=== PATIENT | male | born 1940 | race Caucasian/White ===

== ENCOUNTER → 2016-05-04 | Outpatient (CLI) | payer OTHER ==
[~2016-05-04] MED LIST: CRD4 PO; IPRA1AER2 INH; PRVC/40 PO; SYMIN160 INH; THEO1TAB PO
[2016-05-04 16:48] LABS: BASO % 0.1 %; BASO ABS # 0.01 K/uL (0-0.2); COMPLETE YES; EOS % 0.2 %; HEMATOCRIT 45.5 % (42-52); IG% 0.3 %; LYMPH % 14.2 %; LYMPH ABS # 1.74 K/uL (1.2-3.4); MEAN CELL VOLUME 90.6 fL (80-100); MEAN CORPUSCULAR HEMOGLOBIN 31.3 pg (25-34); MEAN CORPUSCULAR HGB CONC 34.5 g/dl (32-36); MEAN PLATELET VOLUME 9.8 fL (7.4-10.4); MONO % 3.5 %; NEUT % 81.7 %; PLATELET COUNT 235 K/uL (130-400); RED BLOOD COUNT 5.02 M/uL (4.7-6.1); WHITE BLOOD COUNT 12.24 K/uL (4.8-10.8)
[2016-05-04 16:55] LABS: URINE APPEARANCE CLEAR (CLEAR); URINE BILIRUBIN NEG (NEG); URINE COLOR YELLOW; URINE NITRITE NEG (NEG); URINE PH 5.5 (4.5-7.5); URINE SPECIFIC GRAVITY 1.017 (1.000-1.030); UROBILINOGEN NEG (NEG); ZZUR CULT IF INDIC CLEAN CATCH NO
[2016-05-04 16:58] LABS: ALT/SGPT 22 U/L (12-78); BLOOD UREA NITROGEN 17 mg/dl (7-18); BUN/CREATININE RATIO 18.1 (10-20); CALCIUM 9.4 mg/dl (8.5-10.1); CARBON DIOXIDE 26 mmol/L (21-32); CHLORIDE 102 mmol/L (98-107); CHOLESTEROL 266 mg/dl (0-200); CREATININE 0.95 mg/dl (0.60-1.40); GLUCOSE 105 mg/dl (70-99); POTASSIUM 4.2 mmol/L (3.5-5.1); SODIUM 139 mmol/L (136-145)
[2016-05-04 17:00] LABS: MANUAL MICROSCOPIC REQUIRED? NO; REVIEW REQ? NO
[2016-05-04 17:08] LABS: ALB/GLOB RATIO 1.2 (0.9-2); ALKALINE PHOSPHATASE 72 U/L (45-117); AST/SGOT 16 U/L (15-37); CHOLESTEROL/HDL RATIO 3.6; HDL CHOLESTEROL 73 mg/dl; LDL CHOLESTEROL CALCULATED 182 mg/dl; THYROID STIMULATING HORMONE 0.319 uIu/ml (0.300-4.500); TRIGLYCERIDES 55 mg/dl (0-150); VERY LOW DENSITY LIPOPROT CALC 11 mg/dl
--- NOTE | 2016-05-10 11:30 | CODING QUERY MEDICAL NECESSITY ---
SUPPORTING DIAGNOSIS NEEDED A supporting diagnosis is required for the test/procedure performed on this patient in order for us to be reimbursed by the patient's insurance. Please provide a supporting diagnosis for the following test/procedure listed below next to the test name along with your signature. *If there is no additional diagnosis for this patient that would support the following test/procedure please document that below next to the test/procedure. Test(s)/Procedure(s) that require a supporting diagnosis: DOS 05/04 * Vitamin D DIAGNOSIS: Provider Signature: Date: Thank you Gaby Li Health Information Management Once completed, please kindly fax back to [phone] For questions please call [phone]
== END | disposition home or self-care (01) ==
LOC: C.LABBFT 12:47
PROVIDERS: ATTEND Internal Medicine
DX: R06.02 Shortness of breath (principal); E78.00 Pure hypercholesterolemia, unspecified; E55.9 Vitamin D deficiency, unspecified

== ENCOUNTER → 2016-05-05 | Outpatient (CLI) | payer OTHER ==
--- NOTE | 2016-05-05 11:27 | DIAGNOSTIC IMAGING REPORT ---
CHEST 2 VIEWS ROUTINE CLINICAL HISTORY: Shortness of breath. COMPARISON STUDY: Chest CT November 01, 2014 FINDINGS: Lung hyperexpansion is again noted. Emphysema is present. No consolidation is identified. Biapical opacities are unchanged and likely reflect scarring. Cardiac size is normal. Mediastinal contours are normal. There is no evidence of pulmonary edema. Appearance of the chest is unchanged. IMPRESSION: 1. No acute cardiopulmonary findings. No change in appearance of the chest. 2. Emphysema and biapical scarring. Electronically signed by: Ap Negrete M.D. 05/05/2016 11:25 AM
== END | disposition home or self-care (01) ==
LOC: C.RAD 10:26
PROVIDERS: ATTEND Internal Medicine
DX: R06.02 Shortness of breath (principal); J43.9 Emphysema, unspecified; J98.4 Other disorders of lung

== ENCOUNTER → 2016-06-21 | Outpatient (CLI) | payer OTHER | END | disposition home or self-care (01) | LOC: C.LAB1850 11:29 | PROVIDERS: ATTEND Internal Medicine Pulmonary Disease | DX: R07.89 Other chest pain (principal) ==

== ENCOUNTER → 2016-06-22 | Outpatient (CLI) | payer OTHER ==
[~2016-06-22] MED LIST changes: +OPTIRAY 320 IV PRN
--- NOTE | 2016-06-22 11:27 | DIAGNOSTIC IMAGING REPORT ---
CHEST CTA for PULMONARY ARTERIES CT DOSE: 241.94 mGy.cm HISTORY: Chest pain dyspnea TECHNIQUE: Multiaxial CT images of the chest were performed following the intravenous administration of contrast to evaluate the pulmonary arteries. Maximal intensity projection images were also obtained. COMPARISON STUDY: 11/11/2014 FINDINGS: There is a normal caliber thoracic aorta with no evidence for dissection. There is no evidence for pulmonary embolus. No pleural effusions. No pneumothorax. The liver and spleen are unremarkable. No mediastinal or hilar lymphadenopathy. The central airways are patent. The lungs are clear. Emphysematous change. Chronic interstitial prominence. Fibrotic changes of the pulmonary apices stable from the prior exam. IMPRESSION: 1. No evidence for pulmonary embolus. 2. Emphysematous changes similar as compared to the prior study. 3. Nonspecific peribronchial and interstitial prominence also unchanged Electronically signed by: Jc Yanez M.D. 06/22/2016 11:25 AM Dictated Date/Time: 06/22/2016 11:22 AM
== END | disposition home or self-care (01) ==
LOC: C.CTS 10:45
PROVIDERS: ATTEND Internal Medicine Pulmonary Disease
DX: R07.9 Chest pain, unspecified (principal)

== ENCOUNTER → 2016-10-07 | Outpatient (CLI) | payer OTHER ==
[~2016-10-07] MED LIST changes: -OPTIRAY 320 IV PRN
[2016-10-07 12:16] LABS: BASO ABS # 0.13 K/uL (0-0.2); COMPLETE YES; EOS % 6.6 %; HEMATOCRIT 45.7 % (42-52); IG% 0.2 %; LYMPH % 42.5 %; LYMPH ABS # 2.77 K/uL (1.2-3.4); MEAN CELL VOLUME 92.9 fL (80-100); MEAN CORPUSCULAR HEMOGLOBIN 29.9 pg (25-34); MEAN CORPUSCULAR HGB CONC 32.2 g/dl (32-36); MEAN PLATELET VOLUME 9.7 fL (7.4-10.4); MONO % 8.9 %; NEUT % 39.8 %; PLATELET COUNT 220 K/uL (130-400); RED BLOOD COUNT 4.92 M/uL (4.7-6.1); WHITE BLOOD COUNT 6.52 K/uL (4.8-10.8)
[2016-10-07 13:05] LABS: CHOLESTEROL/HDL RATIO 3.7
== END | disposition home or self-care (01) ==
LOC: C.LABBFT 09:26
PROVIDERS: ATTEND Internal Medicine
DX: E78.00 Pure hypercholesterolemia, unspecified (principal); E55.9 Vitamin D deficiency, unspecified

== ENCOUNTER → 2017-04-18 | Outpatient (CLI) | payer OTHER ==
[2017-04-18 18:20] LABS: ALT/SGPT 23 U/L (12-78); BLOOD UREA NITROGEN 17 mg/dl (7-18); BUN/CREATININE RATIO 14.6 (10-20); CALCIUM 8.8 mg/dl (8.5-10.1); CARBON DIOXIDE 28 mmol/L (21-32); CHLORIDE 102 mmol/L (98-107); CREATININE 1.17 mg/dl (0.60-1.40); GLUCOSE 86 mg/dl (70-99); POTASSIUM 4.1 mmol/L (3.5-5.1); SODIUM 134 mmol/L (136-145)
[2017-04-18 18:24] LABS: ALB/GLOB RATIO 1.1 (0.9-2); ALKALINE PHOSPHATASE 77 U/L (45-117); AST/SGOT 17 U/L (15-37); CHOLESTEROL 224 mg/dl (0-200); CHOLESTEROL/HDL RATIO 3.3; HDL CHOLESTEROL 68 mg/dl; LDL CHOLESTEROL CALCULATED 142 mg/dl; TRIGLYCERIDES 72 mg/dl (0-150); VERY LOW DENSITY LIPOPROT CALC 14 mg/dl
== END | disposition home or self-care (01) ==
LOC: C.LABBFT 13:58
PROVIDERS: ATTEND Internal Medicine
DX: J44.9 Chronic obstructive pulmonary disease, unspecified (principal); E78.00 Pure hypercholesterolemia, unspecified

== ENCOUNTER 2020-04-24 12:57 | Inpatient (IN) ==
[2020-04-24] MEDS ORDERED: DEXAMETHASONE SOD INJ 10 MG/ML VIAL IV ONE (13:13)
[2020-04-24 13:23] LABS: Basophils # (auto) 0.02 K/uL (0-0.2); Basophils % (auto) 0.2 %; Hematocrit (blood only) 44.3 % (42-52); Hemoglobin 15.2 g/dL (14.0-18.0); Immature Granulocytes # (auto) 0.03 K/uL (0.00-0.02); Immature Granulocytes % (auto) 0.3 %; Lymphocytes # (auto) 1.05 K/uL (1.2-3.4); Lymphocytes % (auto) 9.8 %; Mean Corpuscular Hemoglobin 31.2 pg (25-34); Mean Corpuscular Hgb Conc 34.3 g/dL (32-36); Mean Platelet Volume 9.4 fL (7.4-10.4); Monocytes # (auto) 0.31 K/uL (0.11-0.59); Monocytes % (auto) 2.9 %; Neutrophils # (auto) 9.31 K/uL (1.4-6.5); Neutrophils % (auto) 86.8 %; Platelet Count 221 K/uL (130-400); RDW Coefficient of Variation 13.5 % (11.5-14.5); RDW Standard Deviation 44.5 fL (36.4-46.3); Red Blood Count 4.87 M/uL (4.7-6.1); White Blood Count 10.72 K/uL (4.8-10.8)
--- NOTE | 2020-04-24 13:34 | Emergency Department Note ---
Impression & Plan COPD (chronic obstructive pulmonary disease), Hypoxia, COVID-19 virus infection ED Provider Note NAME: MARYAM DE LOS SANTOS AGE: 80 SEX: M : 1940 ARRIVES VIA: Walk-In INFORMANT: Patient, ED PROVIDER(S): Octavio Deleon DO CHIEF COMPLAINT: Shortness of breath HPI: The patient is an 80-year-old male has a history of asbestos exposure as well as COPD who presented to the emergency department for an evaluation of difficulty breathing. The patient has been noticing difficulty breathing cough and wheezing over the course of the last 2 weeks. His significant other was recently diagnosed with COVID-19 infection. The patient states that he has had no fever but does complain of dry cough. He describes no lower extremity swelling. He denies having any chest pain. He states his symptoms have been very moderate recently and started to become much worse than prior to arrival. He presented to the emergency department at the request of his family member who noted he was having very significant difficulty breathing. The patient has not been seen by his primary care physician. He is currently not on any antibiotics. ROS: See above HPI for pertinent positives & negatives. A total of 10 systems reviewed and were otherwise negative. PAST MEDICAL HISTORY: See Below PAST SURGICAL HISTORY: See Below FAMILY HISTORY: See Below SOCIAL HISTORY: See Below HOME MEDICATIONS: See Below ALLERGIES: See Below VITALS: See Below PHYSICAL EXAMINATION: GENERAL: Patient is awake alert in no acute distress patient is resting comfortably and showing no signs of anxiety EYES: The conjunctivae are clear. The pupils are round and reactive. EARS, NOSE, MOUTH AND THROAT: The nose is without any evidence of any deformity. NECK: The neck is nontender and supple. RESPIRATORY: Diminished breath sounds are noted throughout. Scattered expiratory wheezing was noted. Significant conversational dyspnea was appr eciated. CARDIOVASCULAR: Tachycardic rate with regular rhythm was noted. There was no definite murmur. GASTROINTESTINAL: The abdomen is soft. Abdomen is nontender. MUSCULOSKELETAL/EXTREMITIES: There is no evidence of gross deformity full range of motion is noted in the hips and shoulders. SKIN: There is no obvious evidence of any rash. No calf tenderness was elicited. NEUROLOGIC: Patient is awake alert and oriented x3. MEDICAL DECISION MAKING: The patient is an 80-year-old male who presented to the emergency department for an evaluation of difficulty breathing. The patient has a history of COPD. The patient significant other was recently diagnosed and admitted for COVID-19 infection which was very severe. The patient himself started having worsening symptoms over the course of the last few days. He had symptoms over the last few weeks but continues to worsen. The patient was treated with IV Decadron in the emergency department. I discussed the patient's laboratory and radiographic studies with him. He was found to have an elevated D-dimer. His lung sounds were relatively abnormal but his chest x-ray showed no significant disease. For this reason CT the chest was also obtained. I discussed the patient's condition with the on-call [facility]. They have agreed to evaluate the patient in the emergency department for further management and disposition. The patient was reevaluated multiple times. Triage Nursing notes reviewed. Prior medical records reviewed Vital Signs: reviewed and remarkable for hypoxia Differential diagnosis: Reactive airway disease, pneumonia, pneumothorax, COPD, CHF, infections, cardiac ischemia, pulmonary embolism, musculoskeletal, gastrointestinal, as well as other pathologies. ER treatment provided: See below Diagnostics interpreted by me: ECG: EKG was obtained in the emergency department. My interpretation is normal sinus rhythm at 93 bpm. There was no ectopy. Right bundle branch block pattern was noted. No PVCs were noted. This was compared to a tracing from May 222019. No significant changes were noted. Cardiac Monitoring: An order was placed for continuous cardiac monitoring. The monitor shows a rate of 85 bpm with sinus rhythm. Laboratory studies: As stated above and show below. Imaging studies: See below Consultation(s): I discussed this case with Dr. Perez who is on-call for the [facility] group. He is agreed to evaluate the patient in the emergency department for further management and disposition. Past Med/Surg History Medical History Asbestos exposure BPH (benign prostatic hyperplasia) COPD (chronic obstructive pulmonary disease) Elevated PSA Hyperlipidemia PIN (prostatic intraepithelial neoplasia) Surgical History History of hernia repair No pertinent past surgical history Family History Other No pertinent family history in first degree relatives Social History Smoking Status: Former smoker Number of Years Since Quit: 35; Second Hand Exposure: No; Hx Alcohol Use: No Hx Substance Use: No Preferred Language: Citizen Of [place] Communication Ability: Effective Visual Impairment: No Limitations Hearing Ability: Hard of Hearing Beliefs That Will Affect Care: None marital status: Current Living Situation: Spouse current occupational status: retired How many Children do You have: 6 Feels Safe at Home: Yes caffeine: Yes during the past year weight has: remained stable Dental Care, Regularly: No Physical Activity Frequency: Does not Exercise Seatbelt Use: sometimes Sunscreen Use: No Allergies Allergies Allergy/AdvReac Type Severity Reaction Status Date / Time rosuvastatin [From Crestor] Allergy Verified 04/24/20 14:31 Home Meds Home Medications Medication Instructions Recorded Confirmed budesonide 2 ml INH BID PRN 05/22/19 04/24/20 Previous Rx's Medication Instructions Recorded prednisone 5 mg tablet 5 mg PO DAILY #90 tab 05/31/19 doxazosin 4 mg tablet 4 mg PO QPM #90 tab 08/13/19 pravastatin 20 mg tablet 20 mg PO DAILY #90 tab 11/30/19 ipratropium 20 mcg-albuterol 100 1 puffs INH Q6H PRN #12 gm 12/03/19 mcg/actuation mist for inhalation Results & Data (ED) Vital Signs Vital Signs - 24 hr 04/24/20 13:00 04/24/20 13:03 04/24/20 13:10 Temperature 36.8 C Temperature Source Oral Pulse Rate 93 H 93 H 92 H Pulse Rate [Left Finger] Pulse Rate from SpO2 Sensor 93 H 93 H 93 H Respiratory Rate 25 H 28 H 22 Respiratory Effort / Characteristics Short of Breath Respiratory Pattern Tachypnea Blood Pressure 143/89 H Blood Pressure [Left Arm] Blood Pressure Mean 120 Blood Pressure Mean [Left Arm] Blood Pressure Position Lying Pulse Oximetry 95 97 97 Oxygen Delivery Method Room Air Oxygen Flow Rate Sepsis Recent Fever Within 48 Hours No Sepsis New/Unexplained Change in Mental Status No Sepsis Action Taken by Nursing No Action Required 04/24/20 13:20 04/24/20 13:21 04/24/20 13:24 Temperature Temperature Source Pulse Rate 99 H 102 H 93 H Pulse Rate [Left Finger] Pulse Rate from SpO2 Sensor 99 H 96 H Respiratory Rate 19 23 18 Respiratory Effort / Characteristics Short of Breath Respiratory Pattern Blood Pressure 122/76 Blood Pressure [Left Arm] Blood Pressure Mean 90 Blood Pressure Mean [Left Arm] Blood Pressure Position Pulse Oximetry 96 95 94 Oxygen Delivery Method Nasal Cannula Oxygen Flow Rate 4 Sepsis Recent Fever Within 48 Hours Sepsis New/Unexplained Change in Mental Status Sepsis Action Taken by Nursing 04/24/20 13:30 04/24/20 13:40 04/24/20 13:50 Temperature Temperature Source Pulse Rate 94 H 94 H 91 H Pulse Rate [Left Finger] Pulse Rate from SpO2 Sensor 95 H 96 H 93 H Respiratory Rate 20 32 H 23 Respiratory Effort / Characteristics Respiratory Pattern Blood Pressure 118/70 Blood Pressure [Left Arm] Blood Pressure Mean 82 Blood Pressure Mean [Left Arm] Blood Pressure Position Pulse Oximetry 93 95 91 Oxygen Delivery Method Oxygen Flow Rate Sepsis Recent Fever Within 48 Hours Sepsis New/Unexplained Change in Mental Status Sepsis Action Taken by Nursing 04/24/20 13:54 04/24/20 13:55 04/24/20 14:00 Temperature Temperature Source Pulse Rate 95 H Pulse Rate [Left Finger] Pulse Rate from SpO2 Sensor 96 H Respiratory Rate 20 16 Respiratory Effort / Characteristics Spontaneous Short of Breath SOB on Exertion Respiratory Pattern Blood Pressure 119/69 Blood Pressure [Left Arm] Blood Pressure Mean 82 Blood Pressure Mean [Left Arm] Blood Pressure Position Pulse Oximetry 95 93 Oxygen Delivery Method Nasal Cannula Nasal Cannula Oxygen Flow Rate 4 4 Sepsis Recent Fever Within 48 Hours Sepsis New/Unexplained Change in Mental Status Sepsis Action Taken by Nursing 04/24/20 14:10 04/24/20 14:20 04/24/20 14:30 Temperature Temperature Source Pulse Rate 99 H 96 H 98 H Pulse Rate [Left Finger] Pulse Rate from SpO2 Sensor 98 H 101 H 99 H Respiratory Rate 34 H 24 13 Respiratory Effort / Characteristics Respiratory Pattern Blood Pressure 113/69 Blood Pressure [Left Arm] Blood Pressure Mean 75 Blood Pressure Mean [Left Arm] Blood Pressure Position Pulse Oximetry 94 92 93 Oxygen Delivery Method Oxygen Flow Rate Sepsis Recent Fever Within 48 Hours Sepsis New/Unexplained Change in Mental Status Sepsis Action Taken by Nursing 04/24/20 14:40 04/24/20 15:00 04/24/20 15:21 Temperature Temperature Source Pulse Rate 91 H 96 H 84 Pulse Rate [Left Finger] Pulse Rate from SpO2 Sensor 96 H 96 H 84 Respiratory Rate 23 35 H 27 H Respiratory Effort / Characteristics Respiratory Pattern Blood Pressure 117/74 119/69 Blood Pressure [Left Arm] Blood Pressure Mean 79 78 Blood Pressure Mean [Left Arm] Blood Pressure Position Pulse Oximetry 93 95 94 Oxygen Delivery Method Oxygen Flow Rate Sepsis Recent Fever Within 48 Hours Sepsis New/Unexplained Change in Mental Status Sepsis Action Taken by Nursing 04/24/20 15:30 04/24/20 15:47 04/24/20 16:00 Temperature Temperature Source Pulse Rate 83 78 Pulse Rate [Left Finger] 77 Pulse Rate from SpO2 Sensor 84 79 Respiratory Rate 17 28 H 24 Respiratory Effort / Characteristics Respiratory Pattern Blood Pressure 120/71 105/64 Blood Pressure [Left Arm] 120/71 Blood Pressure Mean 76 69 Blood Pressure Mean [Left Arm] 87 Blood Pressure Position Pulse Oximetry 95 95 95 Oxygen Delivery Method Nasal Cannula Oxygen Flow Rate 3 Sepsis Recent Fever Within 48 Hours Sepsis New/Unexplained Change in Mental Status Sepsis Action Taken by Nursing 04/24/20 16:30 04/24/20 16:38 04/24/20 17:00 Temperature Temperature Source Pulse Rate 87 85 80 Pulse Rate [Left Finger] Pulse Rate from SpO2 Sensor 86 86 80 Respiratory Rate 23 24 17 Respiratory Effort / Characteristics Respiratory Pattern Blood Pressure 117/69 104/65 Blood Pressure [Left Arm] Blood Pressure Mean 78 73 Blood Pressure Mean [Left Arm] Blood Pressure Position Pulse Oximetry 96 94 94 Oxygen Delivery Method Oxygen Flow Rate Sepsis Recent Fever Within 48 Hours Sepsis New/Unexplained Change in Mental Status Sepsis Action Taken by [facility] Medications Current Medication List: was personally reviewed by me Laboratory Data Attestation: I reviewed the patient's lab results. Result diagrams: 04/24/20 13:08 04/24/20 13:08 Lab Results 04/24/20 04/24/20 04/24/20 Range/Units 13:08 13:08 13:08 WBC (4.8-10.8) K/uL RBC (4.7-6.1) M/uL Hgb (14.0-18.0) g/dL Hct (42-52) % MCV (80-100) fL MCH (25-34) pg MCHC (32-36) g/dL RDW Std Deviation (36.4-46.3) fL RDW Coeff of Pradeep (11.5-14.5) % Plt Count (130-400) K/uL MPV (7.4-10.4) fL Immature Gran % (Auto) % Neut % (Auto) % Lymph % (Auto) % [place] % (Auto) % Eos % (Auto) % Baso % (Auto) % Neut # (Auto) (1.4-6.5) K/uL Lymph # (Auto) (1.2-3.4) K/uL [place] # (Auto) (0.11-0.59) K/uL Eos # (Auto) (0-0.5) K/uL Baso # (Auto) (0-0.2) K/uL Immature Gran # (Auto) (0.00-0.02) K/uL PT 10.8 (9.0-12.0) Seconds INR 1.0 (0.9-1.1) APTT 31.0 (21.0-31.0) Seconds PTT Ratio 1.1 D-Dimer 1470 H* (0-500) ug/L FEU VBG pH (7.36-7.41) VBG pCO2 (38-50) mmHg VBG pO2 mmHg VBG HCO3 mmol/L VBG O2 Saturation % VBG Base Excess mEq/L Barometric Pressure mm/Hg Sodium 131 L (136-145) mmol/L Potassium 3.9 (3.5-5.1) mmol/L Chloride 97 L (98-107) mmol/L Carbon Dioxide 25 (21-32) mmol/L Anion Gap 10.0 (3-11) BUN 25 H (7-18) mg/dl Creatinine 1.08 (0.6-1.4) mg/dl Est Cr Clr Drug Dosing 44.0 ml/min Est GFR ( Amer) 74.2 Est GFR (Non-Af Amer) 64.0 BUN/Creatinine Ratio 23.1 H (10-20) Glucose 112 H (70-99) mg/dl Lactate (0.4-2.0) mmol/L Calcium 8.4 L (8.5-10.1) mg/dl Magnesium 2.1 (1.8-2.4) mg/dl Total Bilirubin 0.7 (0.2-1) mg/dl AST 35 (15-37) U/L ALT 22 (12-78) U/L Alkaline Phosphatase 60 (45-117) U/L Troponin I < 0.015 (0-0.045) ng/ml Total Protein 7.2 (6.4-8.2) gm/dl Albumin 3.0 L (3.4-5.0) gm/dl Globulin 4.2 H (2.5-4.0) gm/dl Albumin/Globulin Ratio 0.7 L (0.9-2) Procalcitonin 0.05 (0-0.5) ng/ml COVID-19 Eval Order SARS-CoV-2 (PCR) (Negative) Influenza Type A (PCR) (Neg) Influenza Type B (PCR) (Neg) RSV (RT-PCR) (Neg) 04/24/20 04/24/20 04/24/20 Range/Units 13:08 13:35 13:35 WBC 10.72 (4.8-10.8) K/uL RBC 4.87 (4.7-6.1) M/uL Hgb 15.2 (14.0-18.0) g/dL Hct 44.3 (42-52) % MCV 91.0 (80-100) fL MCH 31.2 (25-34) pg MCHC 34.3 (32-36) g/dL RDW Std Deviation 44.5 (36.4-46.3) fL RDW Coeff of Pradeep 13.5 (11.5-14.5) % Plt Count 221 (130-400) K/uL MPV 9.4 (7.4-10.4) fL Immature Gran % (Auto) 0.3 % Neut % (Auto) 86.8 % Lymph % (Auto) 9.8 % [place] % (Auto) 2.9 % Eos % (Auto) 0.0 % Baso % (Auto) 0.2 % Neut # (Auto) 9.31 H (1.4-6.5) K/uL Lymph # (Auto) 1.05 L (1.2-3.4) K/uL [place] # (Auto) 0.31 (0.11-0.59) K/uL Eos # (Auto) 0.00 (0-0.5) K/uL Baso # (Auto) 0.02 (0-0.2) K/uL Immature Gran # (Auto) 0.03 H (0.00-0.02) K/uL PT (9.0-12.0) Seconds INR (0.9-1.1) APTT (21.0-31.0) Seconds PTT Ratio D-Dimer (0-500) ug/L FEU VBG pH (7.36-7.41) VBG pCO2 (38-50) mmHg VBG pO2 mmHg VBG HCO3 mmol/L VBG O2 Saturation % VBG Base Excess mEq/L Barometric Pressure mm/Hg Sodium (136-145) mmol/L Potassium (3.5-5.1) mmol/L Chloride (98-107) mmol/L Carbon Dioxide (21-32) mmol/L Anion Gap (3-11) BUN (7-18) mg/dl Creatinine (0.6-1.4) mg/dl Est Cr Clr Drug Dosing ml/min Est GFR ( Amer) Est GFR (Non-Af Amer) BUN/Creatinine Ratio (10-20) Glucose (70-99) mg/dl Lactate (0.4-2.0) mmol/L Calcium (8.5-10.1) mg/dl Magnesium (1.8-2.4) mg/dl Total Bilirubin (0.2-1) mg/dl AST (15-37) U/L ALT (12-78) U/L Alkaline Phosphatase (45-117) U/L Troponin I (0-0.045) ng/ml Total Protein (6.4-8.2) gm/dl Albumin (3.4-5.0) gm/dl Globulin (2.5-4.0) gm/dl Albumin/Globulin Ratio (0.9-2) Procalcitonin (0-0.5) ng/ml COVID-19 Eval Order [facility]Rsv at [facility] SARS-CoV-2 (PCR) POSITIVE A* (Negative) Influenza Type A (PCR) Negative (Neg) Influenza Type B (PCR) Negative (Neg) RSV (RT-PCR) Negative (Neg) 04/24/20 04/24/20 Range/Units 14:23 14:23 WBC (4.8-10.8) K/uL RBC (4.7-6.1) M/uL Hgb (14.0-18.0) g/dL Hct (42-52) % MCV (80-100) fL MCH (25-34) pg MCHC (32-36) g/dL RDW Std Deviation (36.4-46.3) fL RDW Coeff of Pradeep (11.5-14.5) % Plt Count (130-400) K/uL MPV (7.4-10.4) fL Immature Gran % (Auto) % Neut % (Auto) % Lymph % (Auto) % [place] % (Auto) % Eos % (Auto) % Baso % (Auto) % Neut # (Auto) (1.4-6.5) K/uL Lymph # (Auto) (1.2-3.4) K/uL [place] # (Auto) (0.11-0.59) K/uL Eos # (Auto) (0-0.5) K/uL Baso # (Auto) (0-0.2) K/uL Immature Gran # (Auto) (0.00-0.02) K/uL PT (9.0-12.0) Seconds INR (0.9-1.1) APTT (21.0-31.0) Seconds PTT Ratio D-Dimer (0-500) ug/L FEU VBG pH 7.46 H (7.36-7.41) VBG pCO2 37 L (38-50) mmHg VBG pO2 25 mmHg VBG HCO3 26 mmol/L VBG O2 Saturation < 60.0 % VBG Base Excess 1.9 mEq/L Barometric Pressure 728.2 mm/Hg Sodium (136-145) mmol/L Potassium (3.5-5.1) mmol/L Chloride (98-107) mmol/L Carbon Dioxide (21-32) mmol/L Anion Gap (3-11) BUN (7-18) mg/dl Creatinine (0.6-1.4) mg/dl Est Cr Clr Drug Dosing ml/min Est GFR ( Amer) Est GFR (Non-Af Amer) BUN/Creatinine Ratio (10-20) Glucose (70-99) mg/dl Lactate 1.2 (0.4-2.0) mmol/L Calcium (8.5-10.1) mg/dl Magnesium (1.8-2.4) mg/dl Total Bilirubin (0.2-1) mg/dl AST (15-37) U/L ALT (12-78) U/L Alkaline Phosphatase (45-117) U/L Troponin I (0-0.045) ng/ml Total Protein (6.4-8.2) gm/dl Albumin (3.4-5.0) gm/dl Globulin (2.5-4.0) gm/dl Albumin/Globulin Ratio (0.9-2) Procalcitonin (0-0.5) ng/ml COVID-19 Eval Order SARS-CoV-2 (PCR) (Negative) Influenza Type A (PCR) (Neg) Influenza Type B (PCR) (Neg) RSV (RT-PCR) (Neg) Administered Medications Discontinued Medications Dexamethasone (Dexamethasone Sod Inj 10 Mg/Ml Vial) 10 mg IV NOW ONE Stop: 04/24/20 13:14 Last Admin: 04/24/20 13:17 Dose: 10 mg Documented by: [id number] Ioversol (Optiray 320 125ml) 118 ml IV ONCE ONE Stop: 04/24/20 15:10 Last Admin: 04/24/20 15:10 Dose: 118 ml Documented by: [id number] Imaging Data Radiologist's Impression: Patient: MARYAM DE LOS SANTOS Date: 04/24/20#: [id number]: [address] [facility]:[id number]: Date: 1940[facility] Zip: [place], [place] [address]Xxa: 80Location: EDSex: MRoom/Bed:Att Phy:Diagnosis: sobPri Phy: Stan Moseley MDService Date: 04/24/20Fam Phy:Interpreting Phy: Ronaldo GonzalezAdmit Phy: Ordering Phy: Octavio Deleon DO cc: ~ CT angio chest PE protocol CT DOSE: 373.04 mGycm HISTORY: 80 years-old Male with PE. Acute shortness of breath TECHNIQUE: Multiple CTA images of the chest were obtained after the intravenous administration of 118 ml Optiray 320. Coronal and sagittal MIPS were obtained from the axial data set and were submitted for review. All measurements were obtained according to NASCET criteria. A dose lowering technique was utilized adhering to the principles of ALARA. COMPARISON: CTA chest 06/22/2016, 11/11/2014 FINDINGS: CTA: The heart is normal in size. Trace pericardial effusion. Moderate coronary artery calcifications. No thoracic aortic aneurysm or dissection. There is patency of the imaged great vessels. Moderate mixed plaque of the thoracic aorta. Respiratory motion artifact limits the study. The opacified pulmonary artery is unremarkable. The segmental and subsegmental branches within the lung bases are not well opacified and therefore difficult to evaluate. CT CHEST: No large thyroid nodule. Mildly enlarged paratracheal lymph nodes measuring up to 10 mm are likely reactive. Trace pleural effusions. No pneumothorax. Severe emphysema with chronic interstitial coarsening. Patchy subpleural groundglass op acities are noted bilaterally, most pronounced in the upper lobes, right middle lobe and lingula. Irregular and linear biapical nodular opacities are unchanged suggestive of scarring. The central airways are patent. Mild nonspecific distal esophageal wall thickening. Unremarkable soft tissues. Degenerative changes of the shoulders and spine. 5% superior and anterior endplate compression deformity at T12 without retropulsion is new from comparison. Remote T11 compression deformity. IMPRESSION: 1. Limited exam as above. No evidence of pulmonary emboli. 2. Severe emphysema with chronic fibrotic changes. 3. Subpleural predominant patchy bilateral groundglass opacities are suspicious for viral pneumonia. Correlate with Covid status. 4. Trace pleural effusions. 5. Mild paratracheal adenopathy, likely reactive. 6. Biapical linear and irregular nodular opacities are suggestive of pleural- parenchymal scarring and are unchanged from 2015. 7. Age-indeterminate T12 compression deformity, new from 06/22/2016. ACT 112: Negative or not required by law. The above report was generated using voice recognition software. It may contain grammatical, syntax or spelling errors. Electronically signed by: Emory Gonzalez M.D. 04/24/2020 3:31 PM Dictated: 04/24/20 1520Transcribed: 04/24/20 1520 [facility] 04/24[facility]20#: [id number]: [address] [facility][id number]: Date: 1940[facility] Zip: [place] [address]Ock: 80Location: EDSex: MRoom/Bed:Att Phy:Diagnosis: sobPri Phy: Stan Moseley MDService Date: 04/24/20Fam Phy:Interpreting Phy: Ronaldo GonzalezAdmit Phy: Ordering Phy: Octavio Deleon, DO cc: ~ XR chest 1V portable HISTORY: 80 years-old Male SEPSIS acute sepsis with altered mental status COMPARISON: Chest radiograph 05/22/2019 TECHNIQUE: Portable AP view of the chest FINDINGS: And mediastinal and hilar silhouettes are unchanged. Emphysema with chronic interstitial coarsening. Linear scarring of the lung apices redemonstrated. There is no pneumothorax, pleural effusion or overt pulmonary edema. 1.8 cm linear opacity of the left lung apex suggests probable summation density/scarrin g. No airspace consolidation typical for pneumonia. Degenerative changes of the shoulders and spine. IMPRESSION: 1. No acute process. 2. Emphysema with chronic fibrotic changes. ACT 112: Negative or not required by law. The above report was generated using voice recognition software. It may contain grammatical, syntax or spelling errors. Electronically signed by: Emory Gonzalez M.D. 04/24/2020 2:00 PM Dictated: 04/24/20 1357Transcribed: 04/24/20 1357 Blood Pressure Blood Pressure Findings: Normal blood pressure Discharge Plan Visit Data Chief Complaint: Shortness of Breath/Dyspnea Stated Complaint: sob ED Provider: Octavio Deleon Discharge Problem: COPD (chronic obstructive pulmonary disease), Hypoxia, COVID-19 virus infection Patient Disposition: Being Evaluated by Hospitalist Condition: Good Discharge Instructions Interventions: ED Discharge Assessment Last Done: 04/24/20 17:15
[2020-04-24 13:41] LABS: Alanine Aminotransferase 22 U/L (12-78); Aspartate Aminotransferase 35 U/L (15-37); BUN Creatinine Ratio 23.1 (10-20); Blood Urea Nitrogen 25 mg/dl (7-18); Calcium 8.4 mg/dl (8.5-10.1); Carbon Dioxide 25 mmol/L (21-32); Chloride 97 mmol/L (98-107); Est GFR (African American) 74.2; Glucose 112 mg/dl (70-99); Magnesium 2.1 mg/dl (1.8-2.4); Potassium 3.9 mmol/L (3.5-5.1); Sodium 131 mmol/L (136-145)
[2020-04-24 13:45] LABS: Albumin Globulin Ratio 0.7 (0.9-2); Alkaline Phosphatase 60 U/L (45-117); Bilirubin,Total 0.7 mg/dl (0.2-1); Globulin 4.2 gm/dl (2.5-4.0); Total Protein 7.2 gm/dl (6.4-8.2); Troponin I < 0.015 ng/ml (0-0.045)
[2020-04-24 13:46] LABS: Partial Thromboplastin Ratio 1.1; Prothrombin Time 10.8 Seconds (9.0-12.0)
[2020-04-24 13:47] LABS: D Dimer 1470 ug/L FEU (0-500)
--- NOTE | 2020-04-24 14:01 | XRay Report ---
XR chest 1V portable HISTORY: 80 years-old Male SEPSIS acute sepsis with altered mental status COMPARISON: Chest radiograph 05/22/2019 TECHNIQUE: Portable AP view of the chest FINDINGS: And mediastinal and hilar silhouettes are unchanged. Emphysema with chronic interstitial coarsening. Linear scarring of the lung apices redemonstrated. There is no pneumothorax, pleural effusion or over t pulmonary edema. 1.8 cm linear opacity of the left lung apex suggests probable summation density/sc arring. No airspace consolidation typical for pneumonia. Degenerative changes of the shoulders and sp ine. IMPRESSION: 1. No acute process. 2. Emphysema with chronic fibrotic changes. ACT 112: Negative or not required by law. The above report was generated using voice recognition software. It may contain grammatical, syntax o r spelling errors. Electronically signed by: Emory Gonzalez M.D. 04/24/2020 2:00 PM
[2020-04-24 14:42] LABS: Base Excess VBG 1.9 mEq/L; HCO3 VBG 26 mmol/L; PCO2 VBG 37 mmHg (38-50); PO2 VBG 25 mmHg; pH VBG 7.46 (7.36-7.41)
[2020-04-24 14:43] LABS: Influenza A virus by PCR Negative (Neg); Influenza B virus by PCR Negative (Neg); RSV by PCR Negative (Neg)
[2020-04-24 14:43] LABS: Oxygen Saturation VBG < 60.0 %
[2020-04-24 14:52] LABS: SARS CoV2 RNA(COVID-19) InHosp POSITIVE (Negative)
--- NOTE | 2020-04-24 15:00 | Electrocardiogram Report ---
Test Reason : Blood Pressure : / mmHG Vent. Rate : 093 BPM Atrial Rate : 093 BPM P-R Int : 144 ms QRS Dur : 122 ms QT Int : 334 ms P-R-T Axes : 072 269 056 degrees QTc Int : 415 ms Poor data quality, interpretation may be adversely affected Normal sinus rhythm Left anterior fascicular block Right bundle branch block Abnormal ECG When compared with ECG of 22-MAY-2019 16:14, No significant change Confirmed by Isaac Munoz ([id number]) on 04/24/2020 3:00:23 PM Referred By: Confirmed By:Isaac Munoz
[2020-04-24] MEDS ORDERED: OPTIRAY 320 125ml IV ONE (15:09)
--- NOTE | 2020-04-24 15:32 | CT Scan Report ---
CT angio chest PE protocol CT DOSE: 373.04 mGycm HISTORY: 80 years-old Male with PE. Acute shortness of breath TECHNIQUE: Multiple CTA images of the chest were obtained after the intravenous administration of 118 ml Optiray 320. Coronal and sagittal MIPS were obtained from the axial data set and were submitted for review. All measurements were obtained according to NASCET criteria. A dose lowering technique w as utilized adhering to the principles of ALARA. COMPARISON: CTA chest 06/22/2016, 11/11/2014 FINDINGS: CTA: The heart is normal in size. Trace pericardial effusion. Moderate coronary artery calcifications. No thoracic aortic aneurysm or dissection. There is patency of the imaged great vessels. Moderate mixed plaque of the thoracic aorta. Respiratory motion artifact limits the study. The opacified pulmonary a rtery is unremarkable. The segmental and subsegmental branches within the lung bases are not well opa cified and therefore difficult to evaluate. CT CHEST: No large thyroid nodule. Mildly enlarged paratracheal lymph nodes measuring up to 10 mm are likely re active. Trace pleural effusions. No pneumothorax. Severe emphysema with chronic interstitial coarseni ng. Patchy subpleural groundglass opacities are noted bilaterally, most pronounced in the upper lobes , right middle lobe and lingula. Irregular and linear biapical nodular opacities are unchanged sugges tive of scarring. The central airways are patent. Mild nonspecific distal esophageal wall thickening. Unremarkable soft tissues. Degenerative changes o f the shoulders and spine. 5% superior and anterior endplate compression deformity at T12 without ret ropulsion is new from comparison. Remote T11 compression deformity. IMPRESSION: 1. Limited exam as above. No evidence of pulmonary emboli. 2. Severe emphysema with chronic fibrotic changes. 3. Subpleural predominant patchy bilateral groundglass opacities are suspicious for viral pneumonia. Correlate with Covid status. 4. Trace pleural effusions. 5. Mild paratracheal adenopathy, likely reactive. 6. Biapical linear and irregular nodular opacities are suggestive of pleural-parenchymal scarring and are unchanged from 2015. 7. Age-indeterminate T12 compression deformity, new from 06/22/2016. ACT 112: Negative or not required by law. The above report was generated using voice recognition software. It may contain grammatical, syntax o r spelling errors. Electronically signed by: Emory Gonzalez M.D. 04/24/2020 3:31 PM
[2020-04-24] MEDS ORDERED: POLYETHYLENE (MIRALAX) 17 GM PACK PO PRN (17:39)
[2020-04-24] MEDS ORDERED: ACETAMINOPHEN 325 MG TAB PO PRN (17:39)
[2020-04-24] MEDS ORDERED: BUDESONIDE 0.5 MG/2 ML VIAL (PULMICORT) INH PRN (17:39)
[2020-04-24] MEDS ORDERED: ALUMINUM/MAGNESIUM SUSP 30 ML UDC PO PRN (17:39)
[2020-04-24] MEDS ORDERED: ONDANSETRON INJ 2 MG/ML 2 ML VIAL IV PRN (17:39)
[2020-04-24] MEDS ORDERED: IPRATROPIUM BROMIDE/ALBUTEROL respimat INH INH PRN (17:39)
[2020-04-24] MEDS ORDERED: Ipratropium HFA Inhaler (Combivent Respimat P&T Subs) INH PRN (17:42)
[2020-04-24] MEDS ORDERED: Albuterol HFA 8 GM Inhaler (Combivent Respimat P&T Subs) INH PRN (17:43)
--- NOTE | 2020-04-24 20:14 | History & Physical Report ---
Date of Service April 24, 2020 Assessment & Plan (1) Hypoxia: Hypoxia in the setting COVID-19 pneumonia. -Supplemental oxygen increase sats between 88-92 -Remdesivir -Decadron 6 mg x 10 days -No indication for convalescent plasma at this time as patient is saturating well on supplemental oxygen and is speaking in full sentences -Encourage self pronation if worsening -Patient is comfortable with endotracheal intubation in event of acute hypoxic respiratory failure requiring mechanical ventilation -We discussed the risks and benefits and poor prognosis given asbestosis in the setting of COVID-19 pneumonia if he were to require intubation -DNR in event of cardiac arrest. (2) COVID-19 virus infection: (3) Asbestos exposure: (4) COPD (chronic obstructive pulmonary disease): Admission and Anticipated Discharge Date Admission Date: April 24, 2020 History of Present Illness Chief Complaint: Shortness of breath Primary Care Provider: Stan Moseley MD Patient is an 80-year-old male with asbestos exposure and emphysema who presents to [facility] emergency department for increasing work of breathing over the last 2 weeks, he was recently diagnosed with COVID-19. In the emergency department he was noted to desaturate down to the 85% on his baseline home oxygen. He is being admitted for close observation and additional oxygen therapy. Allergies Allergy/AdvReac Type Severity Reaction Status Date / Time rosuvastatin [From Crestor] Allergy Verified 04/24/20 14:31 Home Medications Medication Instructions Recorded Confirmed Type budesonide 2 ml INH BID PRN 05/22/19 04/24/20 History prednisone 5 mg tablet 5 mg PO DAILY #90 tab 05/31/19 04/24/20 Rx doxazosin 4 mg tablet 4 mg PO QPM #90 tab 08/13/19 04/24/20 Rx pravastatin 20 mg tablet 20 mg PO DAILY #90 tab 11/30/19 04/24/20 Rx ipratropium 20 mcg-albuterol 100 1 puffs INH Q6H PRN #12 gm 12/03/19 04/24/20 Rx mcg/actuation mist for inhalation Past Med/Surg History Medical History Asbestos exposure BPH (benign prostatic hyperplasia) COPD (chronic obstructive pulmonary disease) Elevated PSA Hyperlipidemia PIN (prostatic intraepithelial neoplasia) Surgical History History of hernia repair No pertinent past surgical history Family History Other No pertinent family history in first degree relatives Social History Smoking Status: Former smoker Number of Years Since Quit: 35; Second Hand Exposure: No; Hx Alcohol Use: No Hx Substance Use: No Preferred Language: Swiss Communication Ability: Effective Visual Impairment: No Limitations Hearing Ability: Hard of Hearing Full Stack Web Developer Required: No Beliefs That Will Affect Care: None marital status: Current Living Situation: Spouse current occupational status: retired How many Children do You have: 6 Other Information That Helps Us Care for You: No Feels Safe at Home: Yes Safety Concerns: Feels Safe At This Time caffeine: Yes during the past year weight has: remained stable Dental Care, Regularly: No Physical Activity Frequency: Does not Exercise Seatbelt Use: sometimes Sunscreen Use: No Assistive Devices: Denture - Upper, Glasses and Hearing Aid - Bilateral Assistive Devices Comment: BLUM's not here Review of Systems Review of Systems: All systems reviewed & are unremarkable except as noted in HPI & below Physical Exam Physical Exam: General: Elderly male who appears his stated age I have reviewed the recorded vital signs Neurological: No gross motor deficits, Moves all 4 extremities, Psychological: GCS 15 alert and oriented x4 following complex commands Eyes: Pupils are equal, round and reactive to light, anicteric sclera. Symmetrical lids. HENT: Oropharynx Clear, moist Mucous Membranes. Neck: Supple. Symmetric. trachea midline. No thyromegaly. Cardiovascular: Normal peripheral perfusion. Distal pulses and capillary refill intact. No JVD. Respiratory: Respirations are non-labored, no accessory muscle use. Breath so unds are coarse with scattered rhonchi increased IRVIN ratio Gastrointestinal: Soft. Non-distended. Lymphatic: No cervical lymphadenopathy. Musculoskeletal: No deformity. Mild clubbing no cyanosis. Results & Data Results & Data ([facility]) Vital Signs (Past 12 Hours) Vital Signs Temp Pulse Pulse Resp BP BP BP 04/24/20 17:30 36.7 C 87 18 103/64 04/24/20 17:00 80 17 104/65 04/24/20 16:38 85 24 117/69 04/24/20 16:30 87 23 04/24/20 16:00 78 24 105/64 04/24/20 15:47 77 28 H 120/71 04/24/20 15:30 83 17 120/71 04/24/20 15:21 84 27 H 119/69 04/24/20 15:00 96 H 35 H 117/74 04/24/20 14:40 91 H 23 04/24/20 14:30 98 H 13 113/69 04/24/20 14:20 96 H 24 04/24/20 14:10 99 H 34 H 04/24/20 14:00 95 H 16 119/69 04/24/20 13:54 20 04/24/20 13:50 91 H 23 04/24/20 13:40 94 H 32 H 04/24/20 13:30 94 H 20 118/70 04/24/20 13:24 93 H 18 04/24/20 13:21 102 H 23 122/76 04/24/20 13:20 99 H 19 04/24/20 13:10 92 H 22 04/24/20 13:03 93 H 28 H 04/24/20 13:00 36.8 C 93 H 25 H 143/89 H Pulse Ox 04/24/20 17:30 93 04/24/20 17:00 94 04/24/20 16:38 94 04/24/20 16:30 96 04/24/20 16:00 95 04/24/20 15:47 95 04/24/20 15:30 95 04/24/20 15:21 94 04/24/20 15:00 95 04/24/20 14:40 93 04/24/20 14:30 93 04/24/20 14:20 92 04/24/20 14:10 94 04/24/20 14:00 93 04/24/20 13:54 95 04/24/20 13:50 91 04/24/20 13:40 95 04/24/20 13:30 93 04/24/20 13:24 94 04/24/20 13:21 95 04/24/20 13:20 96 04/24/20 13:10 97 04/24/20 13:03 97 04/24/20 13:00 95 Laboratory Results 04/24/20 04/24/20 04/24/20 Range/Units 14:23 14:23 13:35 WBC (4.8-10.8) K/uL RBC (4.7-6.1) M/uL Hgb (14.0-18.0) g/dL Hct (42-52) % MCV (80-100) fL MCH (25-34) pg MCHC (32-36) g/dL RDW Std Deviation (36.4-46.3) fL RDW Coeff of Pradeep (11.5-14.5) % Plt Count (130-400) K/uL MPV (7.4-10.4) fL Immature Gran % (Auto) % Neut % (Auto) % Lymph % (Auto) % [place] % (Auto) % Eos % (Auto) % Baso % (Auto) % Neut # (Auto) (1.4-6.5) K/uL Lymph # (Auto) (1.2-3.4) K/uL [place] # (Auto) (0.11-0.59) K/uL Eos # (Auto) (0-0.5) K/uL Baso # (Auto) (0-0.2) K/uL Immature Gran # (Auto) (0.00-0.02) K/uL PT (9.0-12.0) Seconds INR (0.9-1.1) APTT (21.0-31.0) Seconds PTT Ratio D-Dimer (0-500) ug/L FEU VBG pH 7.46 H (7.36-7.41) VBG pCO2 37 L (38-50) mmHg VBG pO2 25 mmHg VBG HCO3 26 mmol/L VBG O2 Saturation < 60.0 % VBG Base Excess 1.9 mEq/L Barometric Pressure 728.2 mm/Hg Sodium (136-145) mmol/L Potassium (3.5-5.1) mmol/L Chloride (98-107) mmol/L Carbon Dioxide (21-32) mmol/L Anion Gap (3-11) BUN (7-18) mg/dl Creatinine (0.6-1.4) mg/dl Est Cr Clr Drug Dosing ml/min Est GFR ( Amer) Est GFR (Non-Af Amer) BUN/Creatinine Ratio (10-20) Glucose (70-99) mg/dl Lactate 1.2 (0.4-2.0) mmol/L Calcium (8.5-10.1) mg/dl Magnesium (1.8-2.4) mg/dl Total Bilirubin (0.2-1) mg/dl AST (15-37) U/L ALT (12-78) U/L Alkaline Phosphatase (45-117) U/L Troponin I (0-0.045) ng/ml Total Protein (6.4-8.2) gm/dl Albumin (3.4-5.0) gm/dl Globulin (2.5-4.0) gm/dl Albumin/Globulin Ratio (0.9-2) Procalcitonin (0-0.5) ng/ml COVID-19 Eval Order SARS-CoV-2 (PCR) POSITIVE A* (Negative) Influenza Type A (PCR) Negative (Neg) Influenza Type B (PCR) Negative (Neg) RSV (RT-PCR) Negative (Neg) 04/24/20 04/24/20 04/24/20 Range/Units 13:35 13:08 13:08 WBC 10.72 (4.8-10.8) K/uL RBC 4.87 (4.7-6.1) M/uL Hgb 15.2 (14.0-18.0) g/dL Hct 44.3 (42-52) % MCV 91.0 (80-100) fL MCH 31.2 (25-34) pg MCHC 34.3 (32-36) g/dL RDW Std Deviation 44.5 (36.4-46.3) fL RDW Coeff of Pradeep 13.5 (11.5-14.5) % Plt Count 221 (130-400) K/uL MPV 9.4 (7.4-10.4) fL Immature Gran % (Auto) 0.3 % Neut % (Auto) 86.8 % Lymph % (Auto) 9.8 % [place] % (Auto) 2.9 % Eos % (Auto) 0.0 % Baso % (Auto) 0.2 % Neut # (Auto) 9.31 H (1.4-6.5) K/uL Lymph # (Auto) 1.05 L (1.2-3.4) K/uL [place] # (Auto) 0.31 (0.11-0.59) K/uL Eos # (Auto) 0.00 (0-0.5) K/uL Baso # (Auto) 0.02 (0-0.2) K/uL Immature Gran # (Auto) 0.03 H (0.00-0.02) K/uL PT (9.0-12.0) Seconds INR (0.9-1.1) APTT (21.0-31.0) Seconds PTT Ratio D-Dimer (0-500) ug/L FEU VBG pH (7.36-7.41) VBG pCO2 (38-50) mmHg VBG pO2 mmHg VBG HCO3 mmol/L VBG O2 Saturation % VBG Base Excess mEq/L Barometric Pressure mm/Hg Sodium (136-145) mmol/L Potassium (3.5-5.1) mmol/L Chloride (98-107) mmol/L Carbon Dioxide (21-32) mmol/L Anion Gap (3-11) BUN (7-18) mg/dl Creatinine (0.6-1.4) mg/dl Est Cr Clr Drug Dosing ml/min Est GFR ( Amer) Est GFR (Non-Af Amer) BUN/Creatinine Ratio (10-20) Glucose (70-99) mg/dl Lactate (0.4-2.0) mmol/L Calcium (8.5-10.1) mg/dl Magnesium (1.8-2.4) mg/dl Total Bilirubin (0.2-1) mg/dl AST (15-37) U/L ALT (12-78) U/L Alkaline Phosphatase (45-117) U/L Troponin I (0-0.045) ng/ml Total Protein (6.4-8.2) gm/dl Albumin (3.4-5.0) gm/dl Globulin (2.5-4.0) gm/dl Albumin/Globulin Ratio (0.9-2) Procalcitonin 0.05 (0-0.5) ng/ml COVID-19 Eval Order CovFluRsv at [facility] SARS-CoV-2 (PCR) (Negative) Influenza Type A (PCR) (Neg) Influenza Type B (PCR) (Neg) RSV (RT-PCR) (Neg) 04/24/20 04/24/20 Range/Units 13:08 13:08 WBC (4.8-10.8) K/uL RBC (4.7-6.1) M/uL Hgb (14.0-18.0) g/dL Hct (42-52) % MCV (80-100) fL MCH (25-34) pg MCHC (32-36) g/dL RDW Std Deviation (36.4-46.3) fL RDW Coeff of Pradeep (11.5-14.5) % Plt Count (130-400) K/uL MPV (7.4-10.4) fL Immature Gran % (Auto) % Neut % (Auto) % Lymph % (Auto) % [place] % (Auto) % Eos % (Auto) % Baso % (Auto) % Neut # (Auto) (1.4-6.5) K/uL Lymph # (Auto) (1.2-3.4) K/uL [place] # (Auto) (0.11-0.59) K/uL Eos # (Auto) (0-0.5) K/uL Baso # (Auto) (0-0.2) K/uL Immature Gran # (Auto) (0.00-0.02) K/uL PT 10.8 (9.0-12.0) Seconds INR 1.0 (0.9-1.1) APTT 31.0 (21.0-31.0) Seconds PTT Ratio 1.1 D-Dimer 1470 H* (0-500) ug/L FEU VBG pH (7.36-7.41) VBG pCO2 (38-50) mmHg VBG pO2 mmHg VBG HCO3 mmol/L VBG O2 Saturation % VBG Base Excess mEq/L Barometric Pressure mm/Hg Sodium 131 L (136-145) mmol/L Potassium 3.9 (3.5-5.1) mmol/L Chloride 97 L (98-107) mmol/L Carbon Dioxide 25 (21-32) mmol/L Anion Gap 10.0 (3-11) BUN 25 H (7-18) mg/dl Creatinine 1.08 (0.6-1.4) mg/dl Est Cr Clr Drug Dosing 44.0 ml/min Est GFR ( Amer) 74.2 Est GFR (Non-Af Amer) 64.0 BUN/Creatinine Ratio 23.1 H (10-20) Glucose 112 H (70-99) mg/dl Lactate (0.4-2.0) mmol/L Calcium 8.4 L (8.5-10.1) mg/dl Magnesium 2.1 (1.8-2.4) mg/dl Total Bilirubin 0.7 (0.2-1) mg/dl AST 35 (15-37) U/L ALT 22 (12-78) U/L Alkaline Phosphatase 60 (45-117) U/L Troponin I < 0.015 (0-0.045) ng/ml Total Protein 7.2 (6.4-8.2) gm/dl Albumin 3.0 L (3.4-5.0) gm/dl Globulin 4.2 H (2.5-4.0) gm/dl Albumin/Globulin Ratio 0.7 L (0.9-2) Procalcitonin (0-0.5) ng/ml COVID-19 Eval Order SARS-CoV-2 (PCR) (Negative) Influenza Type A (PCR) (Neg) Influenza Type B (PCR) (Neg) RSV (RT-PCR) (Neg) Diagnostic Findings [facility], [phone] CT Scan Report Patient: MARYAM DE LOS SANTOS Date: 04/24/20#: [id number]: [id number] [facility] CLAREAcct ID:[id number]: Date: 1940[facility] Zip: [place], [place] [address]Hhp: 80Location: EDSex: MRoom/Bed:Att Phy:Diagnosis: sobPri Phy: Stan Moseley, MDService Date: 04/24/20Fam Phy:Interpreting Phy: Ronaldo Aguirre Phy: Ordering Phy: Octavio Deleon DO cc: ~ CT angio chest PE protocol CT DOSE: 373.04 mGycm HISTORY: 80 years-old Male with PE. Acute shortness of breath TECHNIQUE: Multiple CTA images of the chest were obtained after the intravenous administration of 118 ml Optiray 320. Coronal and sagittal MIPS were obtained from the axial data set and were submitted for review. All measurements were ob tained according to NASCET criteria. A dose lowering technique was utilized adhering to the principles of ALARA. COMPARISON: CTA chest 06/22/2016, 11/11/2014 FINDINGS: CTA: The heart is normal in size. Trace pericardial effusion. Moderate coronary artery calcifications. No thoracic aortic aneurysm or dissection. There is patency of the imaged great vessels. Moderate mixed plaque of the thoracic a jacey. Respiratory motion artifact limits the study. The opacified pulmonary artery is unremarkable. The segmental and subsegmental branches within the lung bases are not well opacified and therefore difficult to evaluate. CT CHEST: No large thyroid nodule. Mildly enlarged paratracheal lymph nodes measuring up to 10 mm are likely reactive. Trace pleural effusions. No pneumothorax. Severe emphysema with chronic interstitial coarsening. Patchy subpleural groundglass opacities are noted bilaterally, most pronounced in the upper lobes, right middle lobe and lingula. Irregular and linear biapical nodular opacities are unchanged suggestive of scarring. The central airways are patent. Mild nonspecific distal esophageal wall thickening. Unremarkable soft tissues. Degenerative changes of the shoulders and spine. 5% superior and anterior endplate compression deformity at T12 without retropulsion is new from comparison. Remote T11 compression deformity. IMPRESSION: 1. Limited exam as above. No evidence of pulmonary emboli. 2. Severe emphysema with chronic fibrotic changes. 3. Subpleural predominant patchy bilateral groundglass opacities are suspicious for viral pneumonia. Correlate with Covid status. 4. Trace pleural effusions. 5. Mild paratracheal adenopathy, likely reactive. 6. Biapical linear and irregular nodular opacities are suggestive of pleural- parenchymal scarring and are unchanged from 2014. 7. Age-indeterminate T12 compression deformity, new from 06/22/2016. ACT 112: Negative or not required by law. The above report was generated using voice recognition software. It may contain grammatical, syntax or spelling errors. Electronically signed by: Emory Gonzalez M.D. 04/24/2020 3:31 PM Code Status & VTE Plan Code Status DO NOT RESUSCITATE in the event of cardiac arrest VTE Prophylaxis Plan VTE Prophylaxis will be ordered: Yes PG Care Time/CCT Total # of Minutes Spent Total Time Spent with Patient: Total time spent is greater than 50% in coordination of care (as documented) at patient's floor/unit and/or counseling patient: Coding Level of Care Code 91892 Initial Inpt Care Lvl 3 Diagnoses Hypoxia R09.02 COVID-19 virus infection U07.1 Asbestos exposure Z77.090 COPD (chronic obstructive pulmonary disease) J44.9 COPD type: unspecified COPD (1) COPD (chronic obstructive pulmonary disease) COPD type: unspecified COPD Qualified Code(s): J44.9 - Chronic obstructive pulmonary disease, unspecified
[2020-04-24] MEDS ORDERED: REMDESIVIR 200 MG in SODIUM CHLORIDE 0.9% 210 ML IV STA (20:16)
[2020-04-24] MEDS: DOXAZosin MESYLATE 4 MG TAB PO SCH (21:11)
[2020-04-24 21:49] LABS: Appearance Urine Clear (Clear); Bacteria Urine Automated Negative (Negative); Bilirubin Urine Negative (Negative); Blood Urine Trace (Negative); Cast Urine Automated 0 /lpf (0-5); Color Urine Yellow; Glucose Urine UA Negative (Negative); Ketones Urine Trace (Negative); Leukocyte Esterase Urine Negative (Negative); Nitrite Urine Negative (Negative); Protein Urine 1+ (Negative); RBC Urine Automated 0-4 /hpf (0-4); Specific Gravity Urine > 1.045 (1.000-1.030); Urobilinogen Urine Negative (Negative); pH Urine 5.5 (4.5-7.5)
[2020-04-24] MEDS: SODIUM CHLORIDE 0.9% 10ML FLUSH IV SCH (23:39)
[2020-04-25] MEDS ORDERED: predniSONE 5 MG TAB PO SCH (09:00)
[2020-04-25] MEDS: PRAVASTATIN SOD 20 MG TAB PO SCH (09:16)
[2020-04-25] MEDS: dexAMETHasone 6 MG in SYRINGE 0 ML IV SCH (09:16)
[2020-04-25 12:03] LABS: Basophils # (auto) 0.01 K/uL (0-0.2); Basophils % (auto) 0.2 %; Hematocrit (blood only) 41.9 % (42-52); Hemoglobin 14.9 g/dL (14.0-18.0); Immature Granulocytes # (auto) 0.01 K/uL (0.00-0.02); Immature Granulocytes % (auto) 0.2 %; Lymphocytes # (auto) 0.85 K/uL (1.2-3.4); Lymphocytes % (auto) 13.2 %; Mean Corpuscular Hemoglobin 31.7 pg (25-34); Mean Corpuscular Hgb Conc 35.6 g/dL (32-36); Mean Corpuscular Volume 89.1 fL (80-100); Mean Platelet Volume 9.2 fL (7.4-10.4); Monocytes # (auto) 0.53 K/uL (0.11-0.59); Monocytes % (auto) 8.3 %; Neutrophils # (auto) 5.02 K/uL (1.4-6.5); Neutrophils % (auto) 78.1 %; Platelet Count 259 K/uL (130-400); RDW Coefficient of Variation 13.2 % (11.5-14.5); RDW Standard Deviation 43.9 fL (36.4-46.3); White Blood Count 6.42 K/uL (4.8-10.8)
[2020-04-25 12:20] LABS: BUN Creatinine Ratio 33.2 (10-20); Calcium 8.3 mg/dl (8.5-10.1); Creatinine Clr Calc Pharmacy 47.5 ml/min; Est GFR (African American) 83.5
--- NOTE | 2020-04-25 12:23 | Hospitalist Progress Note ---
Date of Service April 25, 2020 Assessment & Plan (1) COVID-19 virus infection: Positive test on 04/24/2020. Symptoms first began several weeks ago. - Continue dexamethasone & remdesivir - Supplemental O2 PRN (2) Bacteremia: 1/4 cultures positive with Gram(+) cocci from 04/24. - Staph PCR pending; follow closely - If PCR negative, will treat, but defer treatment for now. (3) COPD (chronic obstructive pulmonary disease): Improving shortness of breath as above. No wheezing on exam today. - Hold home budesonide & home prednisone - DuoNebs PRN (4) BPH (benign prostatic hyperplasia): No LUTS. - Continue doxazosin (5) Hyperlipidemia: - Continue pravastatin (6) DVT prophylaxis: Lovenox 40 mg SQ daily Admission and Anticipated Discharge Date Admission Date: April 24, 2020 Subjective Feels well overall. Less shortness of breath. Reports no fevers/chills, chest pain, abdominal pain, nausea, or vomiting. Physical Exam Constitutional: WD/WN, vitals as above Eyes: EOM intact bilaterally; no conjunctival abnormality ENMT: external ear and nose normal, oropharynx normal Neck: trachea midline, no thyromegaly normal visual inspection Respiratory: normal respiratory effort, lungs clear to auscultation no respiratory distress Cardiovascular: RRR, no murmur, no edema Gastrointestinal (Abdomen): Inspection/Auscultation: abdomen normal to inspection; abdomen not distended Musculoskeletal: no cyanosis or clubbing, extremities motor strength 5/5 Skin: no rashes, warm and dry Neurologic: moves all extremities and awake Psychiatric: Orientation: alert, oriented to person and cooperative Results & Data Results & Data ([facility]) Vital Signs (Past 12 Hours) Vital Signs Temp Pulse Resp BP Pulse Ox 04/25/20 08:08 36.3 C L 74 18 100/61 94 PG Care Time/CCT Total # of Minutes Spent Total Time Spent with Patient: Total time spent is greater than 50% in coordination of care (as documented) at patient's floor/unit and/or counseling patient: Coding Level of Care Code 78349 Subseq Hosp Care Lvl 3 Diagnoses COVID-19 virus infection U07.1 Bacteremia R78.81 COPD (chronic obstructive pulmonary disease) J44.9 COPD type: unspecified COPD BPH (benign prostatic hyperplasia) N40.0 Hyperlipidemia E78.5 DVT prophylaxis Z29.9 (1) COPD (chronic obstructive pulmonary disease) COPD type: unspecified COPD Qualified Code(s): J44.9 - Chronic obstructive pulmonary disease, unspecified
[2020-04-25] MEDS ORDERED: REMDESIVIR 100mg: Days 2-5 IV SCH (20:00)
[2020-04-25] MEDS: DOXAZosin MESYLATE 4 MG TAB PO SCH (21:01)
[2020-04-25] MEDS: SODIUM CHLORIDE 0.9% 10ML FLUSH IV SCH (22:34)
[2020-04-26 07:33] LABS: Hematocrit (blood only) 41.7 % (42-52); Hemoglobin 14.2 g/dL (14.0-18.0); Mean Corpuscular Hemoglobin 30.7 pg (25-34); Mean Corpuscular Hgb Conc 34.1 g/dL (32-36); Mean Corpuscular Volume 90.1 fL (80-100); Mean Platelet Volume 9.8 fL (7.4-10.4); Platelet Count 284 K/uL (130-400); RDW Coefficient of Variation 13.4 % (11.5-14.5); RDW Standard Deviation 44.2 fL (36.4-46.3); Red Blood Count 4.63 M/uL (4.7-6.1); White Blood Count 10.09 K/uL (4.8-10.8)
[2020-04-26 08:00] LABS: BUN Creatinine Ratio 47.2 (10-20); Calcium 8.3 mg/dl (8.5-10.1); Creatinine Clr Calc Pharmacy 58.2 ml/min; Est GFR (African American) 97.1; Est GFR (Non-African American) 83.8; Magnesium 2.5 mg/dl (1.8-2.4); Potassium 4.3 mmol/L (3.5-5.1)
[2020-04-26] MEDS ORDERED: ENOXAPARIN INJ 40 MG/0.4 ML SYR SQ SCH (09:00)
[2020-04-26] MEDS: dexAMETHasone 6 MG in SYRINGE 0 ML IV SCH (09:30)
[2020-04-26] MEDS: PRAVASTATIN SOD 20 MG TAB PO SCH (09:31)
--- NOTE | 2020-04-26 18:42 | Discharge Summary ---
Date of Service April 26, 2020 Admission HPI Per Admitting Provider Patient is an 80-year-old male with asbestos exposure and emphysema who presents to [facility] emergency department for increasing work of breathing over the last 2 weeks, he was recently diagnosed with COVID-19. In the emergency department he was noted to desaturate down to the 85% on his baseline home oxygen. He is being admitted for close observation and additional oxygen therapy. Principal Diagnosis Covid-19 pneumonia Discharge Exam Constitutional WD/WN, vitals as above Eyes EOM intact bilaterally; no conjunctival abnormality ENMT external ear and nose normal, oropharynx normal Neck trachea midline, no thyromegaly normal visual inspection Respiratory normal respiratory effort, lungs clear to auscultation no respiratory distress Cardiovascular RRR, no murmur, no edema Gastrointestinal (Abdomen) Inspection/Auscultation: abdomen normal to inspection; abdomen not distended Musculoskeletal no cyanosis or clubbing, extremities motor strength 5/5 Skin no rashes, warm and dry Neurologic moves all extremities and awake Psychiatric Orientation: alert, oriented to person and cooperative Discharge Data Allergies Allergy/AdvReac Type Severity Reaction Status Date / Time rosuvastatin [From Crestor] Allergy Verified 04/24/20 14:31 Consultations 04/24/20 15:53 ED Decision to Admit Stat Ordered Studies 04/24/20 14:52 CT angio chest PE protocol Stat Hospital Course (1) COVID-19 virus infection: Positive test on 04/24/2020. Symptoms first began several weeks ago. - Continued dexamethasone & remdesivir while inpatient. - Supplemental O2 PRN - Improved by 04/26. Off O2 and passed 2-step without needing O2 on exertion. Given improvement and desire to go home, the patient was discharged on 7 days of dexamethasone, but stopped remdesivir. Given remote symptom onset, likely not contagious at this point. (2) Bacteremia: 1/4 cultures positive with Gram(+) cocci from 04/24. - Staph PCR was negative. - Only 1/4 bottles. Likely contaminant. (3) COPD (chronic obstructive pulmonary disease): Improving shortness of breath as above. No wheezing on exam today. - Hold home budesonide & home prednisone - DuoNebs PRN (4) BPH (benign prostatic hyperplasia): No LUTS. - Continue doxazosin (5) Hyperlipidemia: - Continue pravastatin (6) DVT prophylaxis: Lovenox 40 mg SQ daily Total Time Total Time Spent Total Time Spent (In Minutes): 35 Discharge Plan Discharge Items Patient Disposition: Home - Self-Care Reason For Visit: ACUTE HYPOXIC RESP FAILURE Discharge Diagnosis: Covid-19 pneumonia Condition on Discharge: Good Activity: Resume your previous activity Non-emergency contact: Primary Care Provider Call non-emergency contact if: your symptoms worsen and your pain is worsening Follow-up/Referrals: Ashwin Moseley MD [Primary Care Provider] - Diet: Regular Addtl Attending Provider Instructions: You were admitted with Covid-19 pneumonia. You will need to be on steroids for 7 more days. Please follow up with Dr. Moseley in 2 weeks to be sure you are doing well. Pending Studies at Discharge: No Stand-Alone Forms: My [facility] [employer], Smoking Cessation Medications and DC Order Prescriptions: New dexamethasone 6 mg tablet 6 mg PO DAILY Qty: 7 RF: 0 Continued doxazosin 4 mg tablet 4 mg PO QPM Qty: 90 RF: 3 Combivent Respimat 20-100 mcg/actuation mist 1 puffs INH Q6H PRN (Reason: shortness of breath or wheezing) Qty: 12 RF: 3 pravastatin 20 mg tablet 20 mg PO DAILY Qty: 90 RF: 3 budesonide 0.5 mg/2 mL suspension for nebulization 2 ml INH BID PRN (Reason: COPD) RF: 0 Discontinued prednisone 5 mg tablet 5 mg PO DAILY Qty: 90 RF: 3 Discharge Orders: Discharge Order (Routine); Ordered 04/26/20 Ordered By: Carlton Petit Admission Data Admit Date/Time: 04/24/20 16:48 Attending Provider: Carlton Petit Admit Provider: Madan Lucero Primary Care Provider: Ashwin Moseley Other Providers: Carlton Petit Other Interventions: Discharge Summary Assessment (RN) Last Done: 04/26/20 14:33 Coding Level of Care Code D/C Day Management >30 mins Diagnoses COVID-19 virus infection U07.1 Bacteremia R78.81 COPD (chronic obstructive pulmonary disease) J44.9 COPD type: unspecified COPD BPH (benign prostatic hyperplasia) N40.0 Hyperlipidemia E78.5 DVT prophylaxis Z29.9
== END 2020-04-26 15:30 | disposition home or self-care (01) | DRG 177 ==
LOC: ED 12:57 → 3E 16:48 → SUATTDRO 16:48 → 3E 17:15

== ENCOUNTER 2020-10-19 17:10 | Observation (INO) ==
[2020-10-19] MEDS ORDERED: SODIUM CHLORIDE 0.9% 1000ML 500 ML IV ONE ×2 (17:27→20:02)
[2020-10-19] MEDS ORDERED: methylPREDNISolone 125 MG/2 ML VIAL IV STA (17:27)
[2020-10-19] MEDS ORDERED: ONDANSETRON INJ 2 MG/ML 2 ML VIAL IV STA (17:27)
[2020-10-19] MEDS ORDERED: ACETAMINOPHEN 1,000 MG/100 ML VIAL IV STA (17:28)
--- NOTE | 2020-10-19 17:38 | XRay Report ---
XR chest 1V portable HISTORY: Atypical Chest Pain COMPARISON: Chest 04/24/2020. FINDINGS: No pneumothorax. No pleural effusions. The heart is normal in size. No evidence for pulmona ry edema. There is a new focal right apical density. Stable 1.8 cm density within the left lung apex. The lung bases are clear. Emphysema. IMPRESSION: There is new focal density within the right lung apex. This could represent a pneumonia. This will be better appreciated on the same day chest CT. ACT 112: Negative or not required by law. Electronically signed by: Tha Robledo M.D. 10/19/2020 5:36 PM
[2020-10-19] MEDS ORDERED: LEVALBUTEROL HCL 1.25 MG/3 ML NEB NEB STA ×2 (18:00→19:27)
[2020-10-19 18:06] LABS: iSTAT Hemoglobin 15.3 g/dl (14.0-18.0); iSTAT Ionized Calcium 1.11 mmol/l (1.12-1.32)
[2020-10-19] MEDS ORDERED: OPTIRAY 320 125ml IV ONE (18:13)
[2020-10-19 18:22] LABS: Alanine Aminotransferase 19 U/L (12-78); Albumin Level 2.9 gm/dl (3.4-5.0); BUN Creatinine Ratio 21.6 (10-20); Blood Urea Nitrogen 23 mg/dl (7-18); Calcium 8.1 mg/dl (8.5-10.1); Carbon Dioxide 23 mmol/L (21-32); Chloride 104 mmol/L (98-107); Creatinine Clr Calc Pharmacy 48.5 ml/min; Est GFR (African American) 76.8 ml/min; Est GFR (Non-African American) 66.3 ml/min; Glucose 105 mg/dl (70-99); Lipase 118 U/L (73-393); Sodium 132 mmol/L (136-145)
[2020-10-19 18:27] LABS: Basophils # (auto) 0.05 K/uL (0-0.2); Eosinophils # (auto) 0.01 K/uL (0-0.5); Eosinophils % (auto) 0.2 %; Hematocrit (blood only) 44.6 % (42-52); Hemoglobin 15.3 g/dL (14.0-18.0); Immature Granulocytes # (auto) 0.01 K/uL (0.00-0.02); Immature Granulocytes % (auto) 0.2 %; Lymphocytes # (auto) 0.76 K/uL (1.2-3.4); Lymphocytes % (auto) 14.8 %; Mean Corpuscular Hemoglobin 30.8 pg (25-34); Mean Corpuscular Hgb Conc 34.3 g/dL (32-36); Mean Corpuscular Volume 89.7 fL (80-100); Monocytes % (auto) 3.9 %; Neutrophils # (auto) 4.12 K/uL (1.4-6.5); Neutrophils % (auto) 79.9 %; Platelet Count 249 K/uL (130-400); Red Blood Count 4.97 M/uL (4.7-6.1); White Blood Count 5.15 K/uL (4.8-10.8)
[2020-10-19 18:31] LABS: Albumin Globulin Ratio 0.7 (0.9-2); Alkaline Phosphatase 76 U/L (45-117); Bilirubin,Total 0.7 mg/dl (0.2-1); Creatine Kinase MB < 1.0 ng/ml (0.5-3.6); Globulin 3.9 gm/dl (2.5-4.0); Total Protein 6.8 gm/dl (6.4-8.2); Troponin I < 0.015 ng/ml (0-0.045)
[2020-10-19] MEDS ORDERED: HYDROCORTISONE SOD SUCCINATE 100 MG/2 ML VIAL IV STA (19:06)
--- NOTE | 2020-10-19 19:07 | CT Scan Report ---
HEAD CT NONCONTRAST CT DOSE: 1577.66 mGy.cm HISTORY: Pt multiple falls TECHNIQUE: Multiaxial CT images of the head were performed without the use of intravenous contrast. A utomated exposure control was utilized for this study. A dose lowering technique was utilized adheri ng to the principles of ALARA. Comparison: None. Findings: The paranasal sinuses and mastoid air cells are clear. The calvarium and skull base are int act. There is no mass, hematoma, midline shift, acute infarct. White matter hypodensity is nonspecifi c but suggestive of microvascular ischemic change. The ventricles and sulci demonstrate mild age-rela rosio involutional changes. Impression: No acute intracranial abnormality. Atrophy and microvascular ischemic changes. ACT 112: Negative or not required by law. Electronically signed by: Tha Robledo M.D. 10/19/2020 7:00 PM
--- NOTE | 2020-10-19 19:07 | CT Scan Report ---
CERVICAL SPINE CT CT DOSE: HISTORY: Pt c/o neck pain TECHNIQUE: Multiaxial CT images of the cervical spine were performed and reformatted in the sagittal and coronal plane without the use of contrast. A dose lowering technique was utilized adhering to th e principles of ALARA. COMPARISON: None. FINDINGS: No fractures. No subluxation. Prevertebral soft tissues and the C1-C2 interval are intact. No pneumothorax. Irregular biapical densities are better appreciated on the same day chest CT. IMPRESSION: No fractures within the cervical spine. ACT 112: Negative or not required by law. Electronically signed by: Tha Robledo M.D. 10/19/2020 7:03 PM
[2020-10-19] MEDS ORDERED: PIPERACILL/TAZOBAC CONSULT ACTIVE PRN (19:12)
[2020-10-19] MEDS ORDERED: PIPERACILLIN/TAZOBACTAM 4.5 GM/120 ML BAG IV ONE (19:12)
[2020-10-19] MEDS ORDERED: levoFLOXacin/D5W 750 MG/150 ML BAG IV STA (19:12)
--- NOTE | 2020-10-19 19:24 | CT Scan Report ---
CHEST CTA for PULMONARY ARTERIES CT DOSE: HISTORY: Shortness of breath. TECHNIQUE: Multiaxial CT images of the chest were performed following the intravenous administration of contrast to evaluate the pulmonary arteries. Maximal intensity projection images were also obtaine d. A dose lowering technique was utilized adhering to the principles of ALARA. COMPARISON STUDY: Chest CTA 04/24/2020. FINDINGS: There is an old T12 superior endplate compression deformity. Super endplate indentation at T11 may be due to a Schmorl's node. Please refer to the same day abdomen and pelvis CT for further ev aluation of the abdominal structures. There are trace bilateral pleural effusions. The heart is greyson l in size. Normal caliber thoracic aorta. Borderline enlarged mediastinal and bilateral hilar lymph n odes are also unchanged. Normal caliber thoracic aorta with no evidence for dissection. No filling de fects within the pulmonary arteries to suggest a pulmonary embolus. Severe emphysema. No pneumothorax . Dilated trachea likely due to the emphysema. Mild central bronchial wall thickening which is likely chronic. An irregular left apical density remains unchanged. There is a new 7 mm left apical nodular density in image 288. There is a 7 mm nodular density within the left upper lobe on image 230 which is also new from the prior study. Small patchy irregular density within the superior segment of the l eft lower lobe is new from the prior study. Multifocal areas of consolidation within the right lung a pex are also new from the prior study. Dominant focus of consolidation on image 279 measures 3 cm. Sm all subpleural density within the right upper lobe laterally. IMPRESSION: 1. No evidence for pulmonary embolus. 2. Multifocal areas consolidation within the right upper lobe with a few scattered additional nodular /irregular densities within the lungs as described above. Findings favor a pneumonia. However, [address] follow-up recommended to ensure resolution and to exclude the possibility of an under lying neoplastic process. 3. Emphysema. 4. Trace bilateral pleural effusions. 5. Mild mediastinal and bilateral hilar lymphadenopathy, unchanged. This also bears watching on futur e examinations. ACT 112: Positive. There are findings on this exam that require communication between the performing entity and the patient following Patient Test Result Information Act ([place] Act 112) guidelines. Electronically signed by: Tha Robledo M.D. 10/19/2020 7:22 PM
--- NOTE | 2020-10-19 20:11 | Emergency Department Note ---
Impression & Plan Pneumonia, Adrenal insufficiency due to corticosteroid withdrawal, Dyspnea on exertion, Bradycardia ED Provider Note NAME: MARYAM DE LOS SANTOS AGE: 80 SEX: M : 1940 ARRIVES VIA: Walk-In INFORMANT: Patient, family ED PROVIDER(S): Santhosh Salamanca MD CHIEF COMPLAINT: multiple falls, neck pain HPI: This is an 80-year-old male who presents to the emergency department complaining of multiple falls over the past 3 days. His granddaughter reports that the patient was on a prednisone dose for the past 10 years however this was recently stopped. The patient reports he has been feeling generally weak and short of breath. He reports any exertion makes the shortness of breath worse however rest makes this better. He has not taken anything for the weakness. The patient is brought in by EMS. ROS: See above HPI for pertinent positives & negatives. A total of 10 systems reviewed and were otherwise negative. PAST MEDICAL HISTORY: See Below PAST SURGICAL HISTORY: See Below FAMILY HISTORY: See Below SOCIAL HISTORY: See Below HOME MEDICATIONS: See Below ALLERGIES: See Below VITALS: See Below PHYSICAL EXAMINATION: VITAL SIGNS - Vital signs and nursing notes were reviewed. GENERAL - 80-year-old male appearing stated age who is in no acute distress. Communicates well with provider and answers questions appropriately. hard of hearing SKIN - Without rashes. HEAD - NC/AT. EYES - PERRL with EOMI bilaterally. Sclera anicteric. Palpebral conjunctiva pink and moist with no injection noted. EARS - No deformities of external structures noted on gross examination bilaterally. NOSE - Midline and without cyanosis. No epistaxis or purulent drainage noted. Septum midline without deviation or septal hematoma noted. MOUTH/OROPHARYNX - Without perioral cyanosis. Buccal mucosa pink and moist and without leukoplakia. Tongue midline with equal elevation of palate bilaterally. No tonsillar hypertrophy, erythema, or exudates noted. NECK - Neck with FROM. Supple to palpation. lymphadenopathy noted. No nuchal rigidity. LUNGS - Chest wall symmetric without accessory muscle use, intercostals retractions, or central cyanosis. Normal vesicular breath sounds CTA B/L. Distant breath sounds b/l CARDIAC - RRR with S1/S2. No murmur, rubs, or gallops appreciated. ABDOMEN - Abdominal contour without pulsations or visible masses. BS normoactive all four quadrants. No tenderness, palpable masses, hepatosplenomegaly, or ascites noted. EXTREMITIES - No clubbing or peripheral cyanosis. No pretibial edema present. +3/5 radial, posterior tibial, and dorsalis pedis pulses palpated throughout. +5/5 strength noted in UE/LE bilaterally. NEUROLOGIC - Cranial nerves II through XII grossly intact. Sensory intact to light touch throughout. Patellar reflexes +2/4. PSYCH - A&Ox3 and cooperates fully with examiner. Pt is very pleasant and interacts well with examiner. MEDICAL DECISION MAKING: Patient was seen and evaluated as above in room B11. Review was performed of nursing notes and vital signs. I did review pertinent previous visits and patient history. After obtaining a thorough history and physical examination the above work up was performed. This is an 80-year-old male who presents emergency department complaining of weakness along with multiple falls. The patient was sent for CAT scan of the head chest abdomen pelvis as well as the neck. This does not show any acute process except for pneumonia on the CAT scan of the chest. I am concerned that the patient may be adrenal insufficient and he may be fighting a pneumonia infection. He was pancultured and started on Zosyn as well as Levaquin. He was given a normal saline bolus x2 along with Solu-Cortef. Because the patient remains hypotensive and hypoxic I did discuss the case with the hospitalist se lewis who did agree to meet the patient. Patient is in agreement with treatment plan. An order was placed for continuous cardiac monitoring. The monitor shows a rate of 80 with Normal SInus rhythm. The patient was evaluated during a period of high volume and high acuity during the global COVID-19 pandemic, and that diagnosis was suspected/considered upon their initial presentation. Their evaluation, treatment and testing was consistent with current guidelines for patients who present with complaints or symptoms that may be related to COVID-19. Patient was seen while provider was wearing PPE. Triage Nursing notes reviewed. Prior medical records reviewed Vital Signs: reviewed and remarkable for no significant abnormalities Differential diagnosis: Reactive airway disease, pneumonia, pneumothorax, COPD, CHF, infections, cardiac ischemia, pulmonary embolism, musculoskeletal, gastrointestinal, as well as other pathologies. ER treatment provided: See below Diagnostics interpreted by me: ECG: Sinus rhythm with occasional PVC premature atrial complex left axis deviation right bundle branch block QTC is 435 ventricular rate is [address] elevation or depression EKG is compared to April 2020 and is unchanged. Laboratory studies: As stated above and show below. Imaging studies: See below Consultation(s): Internal Medicine PDMP:reviewed and no issues Critical Care: I have personally spent greater than 30 minutes of critical care time in the direct management of this patient. This includes bedside care, interpretation of diagnostic studies, and testing, discussion with consultants, patient, and family members, and other required patient management activities. This 30 minutes is in excess of all separately billable procedures. Past Med/Surg History Medical History Asbestos exposure BPH (benign prostatic hyperplasia) COPD (chronic obstructive pulmonary disease) Elevated PSA Hyperlipidemia PIN (prostatic intraepithelial neoplasia) Surgical History History of hernia repair No pertinent past surgical history Family History (Updated 06/04/20 @ 08:18 by Alia Garcia MA) Other No pertinent family history in first degree relatives Denies family history of Ovarian cancer Prostate cancer Coronary heart disease Breast cancer Colorectal cancer Social History (Updated 06/04/20 @ 08:18 by Alia Garcia MA) Smoking Status: Former smoker Number of Years Since Quit: 35; Second Hand Exposure: No; Hx Alcohol Use: No Hx Substance Use: No Preferred Language: Palauan Communication Ability: Effective Visual Impairment: No Limitations Hearing Ability: Hard of Hearing [place] [employer] Required: No Beliefs That Will Affect Care: None marital status: Current Living Situation: Spouse current occupational status: retired How many Children do You have: 6 Feels Safe at Home: Yes Childhood Exposure to Second-Hand Smoke: No caffeine: Yes during the past year weight has: remained stable Dental Care, Regularly: No Physical Activity Frequency: Does not Exercise Seatbelt Use: sometimes Sunscreen Use: No Assistive Devices: None Allergies Allergies Allergy/AdvReac Type Severity Reaction Status Date / Time rosuvastatin [From Crestor] Allergy Unknown Verified 10/19/20 17:56 Home Meds Home Medications Medication Instructions Recorded Confirmed Trelegy Ellipta 1 inh INHALATION DAILY 10/19/20 10/19/20 sulindac 150 mg PO BID 10/19/20 10/19/20 Previous Rx's Medication Instructions Recorded pravastatin 20 mg tablet 20 mg PO DAILY #90 tab 11/30/19 budesonide 0.5 mg/2 mL suspension 0.5 mg INH BID #60 ml 06/04/20 for nebulization ipratropium 0.5 mg-albuterol 3 mg 3 ml INHALATION Q6H PRN #180 ml 06/05/20 (2.5 mg base)/3 mL nebulization soln ipratropium 20 mcg-albuterol 100 1 puff INH Q6H PRN #12 gm 06/17/20 mcg/actuation mist for inhalation prednisone 5 mg tablet 5 mg PO DAILY #90 tab 06/19/20 amoxicillin-pot clavulanate 1 tab PO BID #10 tab 10/20/20 [Augmentin] azithromycin 250 mg PO DAILY #3 tab 10/20/20 prednisone 40 mg PO DAILY #8 tab 10/20/20 Results & Data (ED) Vital Signs Vital Signs - 24 hr 10/19/20 20:36 10/19/20 20:37 10/19/20 20:43 Pulse Rate 79 83 83 Pulse Rate from SpO2 Sensor 78 82 81 Respiratory Rate 20 18 17 Blood Pressure 86/47 L 81/54 L Blood Pressure Mean 60 63 Pulse Oximetry 97 97 97 Oxygen Delivery Method Nasal Cannula Nasal Cannula Oxygen Flow Rate 2 2 10/19/20 20:45 10/19/20 20:50 10/19/20 20:51 Pulse Rate 81 74 77 Pulse Rate from SpO2 Sensor 82 78 77 Respiratory Rate 23 15 16 Blood Pressure 93/50 L 89/59 L Blood Pressure Mean 64 69 Pulse Oximetry 96 96 96 Oxygen Delivery Method Nasal Cannula Nasal Cannula Nasal Cannula Oxygen Flow Rate 2 2 2 10/19/20 20:55 10/19/20 21:00 10/19/20 21:01 Pulse Rate 76 74 76 Pulse Rate from SpO2 Sensor 70 72 81 Respiratory Rate 15 23 14 Blood Pressure 80/49 L 80/51 L 91/53 L Blood Pressure Mean 59 60 65 Pulse Oximetry 96 97 96 Oxygen Delivery Method Nasal Cannula Nasal Cannula Nasal Cannula Oxygen Flow Rate 2 2 2 10/19/20 21:05 10/19/20 21:06 10/19/20 21:10 Pulse Rate 72 72 74 Pulse Rate from SpO2 Sensor 80 74 75 Respiratory Rate 24 20 20 Blood Pressure 91/53 L 85/48 L Blood Pressure Mean 65 60 Pulse Oximetry 96 95 97 Oxygen Delivery Method Oxygen Flow Rate 10/19/20 21:15 10/19/20 21:20 10/19/20 21:25 Pulse Rate 71 70 76 Pulse Rate from SpO2 Sensor 73 71 76 Respiratory Rate 21 Blood Pressure 86/46 L 87/48 L 83/49 L Blood Pressure Mean 59 61 60 Pulse Oximetry 96 95 96 Oxygen Delivery Method Nasal Cannula Oxygen Flow Rate 2 Laboratory Data Result diagrams: 10/20/20 05:59 10/20/20 05:58 Lab Results 10/19/20 10/19/20 10/19/20 Range/Units 17:28 17:28 17:28 WBC 5.15 (4.8-10.8) K/uL RBC 4.97 (4.7-6.1) M/uL Hgb 15.3 (14.0-18.0) g/dL POC Hgb (14.0-18.0) g/dl Hct 44.6 (42-52) % POC Hct (42-52) % MCV 89.7 (80-100) fL MCH 30.8 (25-34) pg MCHC 34.3 (32-36) g/dL Plt Count 249 (130-400) K/uL Immature Gran % (Auto) 0.2 % Neut % (Auto) 79.9 % Lymph % (Auto) 14.8 % [place] % (Auto) 3.9 % Eos % (Auto) 0.2 % Baso % (Auto) 1.0 % Neut # (Auto) 4.12 (1.4-6.5) K/uL Lymph # (Auto) 0.76 L (1.2-3.4) K/uL [place] # (Auto) 0.20 (0.11-0.59) K/uL Eos # (Auto) 0.01 (0-0.5) K/uL Baso # (Auto) 0.05 (0-0.2) K/uL Immature Gran # (Auto) 0.01 (0.00-0.02) K/uL APTT Cancelled PTT Ratio Cancelled POC Sodium (135-144) mmol/L Sodium 132 L (136-145) mmol/L POC Potassium (3.3-5.0) mmol/L Potassium (3.5-5.1) mmol/L POC Chloride (101-112) mmol/L Chloride 104 (98-107) mmol/L Carbon Dioxide 23 (21-32) mmol/L POC Total CO2 (24-31) mmol/L Anion Gap 5.0 (3-11) POC Anion Gap (16-25) mmol/L POC BUN (7-18) mg/dl BUN 23 H (7-18) mg/dl Creatinine 1.05 (0.6-1.4) mg/dl POC Creatinine (0.6-1.3) mg/dl Est Cr Clr Drug Dosing 48.5 ml/min Est GFR ( Amer) 76.8 ml/min Est GFR (Non-Af Amer) 66.3 ml/min BUN/Creatinine Ratio 21.6 H (10-20) Glucose 105 H (70-99) mg/dl POC Glucose (other) (70-99) mg/dl Calcium 8.1 L (8.5-10.1) mg/dl POC Ioniz Calcium Raúl (1.12-1.32) mmol/l Total Bilirubin 0.7 (0.2-1) mg/dl AST (15-37) U/L ALT 19 (12-78) U/L Alkaline Phosphatase 76 (45-117) U/L Total Creatine Kinase (39-308) U/L CK-MB (CK-2) < 1.0 (0.5-3.6) ng/ml CK/CKMB % Calc TNP Troponin I < 0.015 (0-0.045) ng/ml Total Protein 6.8 (6.4-8.2) gm/dl Albumin 2.9 L (3.4-5.0) gm/dl Globulin 3.9 (2.5-4.0) gm/dl Albumin/Globulin Ratio 0.7 L (0.9-2) Lipase 118 (73-393) U/L Random Cortisol mcg/dl COVID-19 Eval Order SARS-CoV-2 (PCR) (Negative) 10/19/20 10/19/20 10/19/20 Range/Units 17:53 18:06 18:06 WBC (4.8-10.8) K/uL RBC (4.7-6.1) M/uL Hgb (14.0-18.0) g/dL POC Hgb 15.3 (14.0-18.0) g/dl Hct (42-52) % POC Hct 45 (42-52) % MCV (80-100) fL MCH (25-34) pg MCHC (32-36) g/dL Plt Count (130-400) K/uL Immature Gran % (Auto) % Neut % (Auto) % Lymph % (Auto) % [place] % (Auto) % Eos % (Auto) % Baso % (Auto) % Neut # (Auto) (1.4-6.5) K/uL Lymph # (Auto) (1.2-3.4) K/uL [place] # (Auto) (0.11-0.59) K/uL Eos # (Auto) (0-0.5) K/uL Baso # (Auto) (0-0.2) K/uL Immature Gran # (Auto) (0.00-0.02) K/uL APTT PTT Ratio POC Sodium 135 (135-144) mmol/L Sodium (136-145) mmol/L POC Potassium 4.0 (3.3-5.0) mmol/L Potassium (3.5-5.1) mmol/L POC Chloride 101 (101-112) mmol/L Chloride (98-107) mmol/L Carbon Dioxide (21-32) mmol/L POC Total CO2 23 L (24-31) mmol/L Anion Gap (3-11) POC Anion Gap 16.0 (16-25) mmol/L POC BUN 26 H (7-18) mg/dl BUN (7-18) mg/dl Creatinine (0.6-1.4) mg/dl POC Creatinine 1.0 (0.6-1.3) mg/dl Est Cr Clr Drug Dosing ml/min Est GFR ( Amer) ml/min Est GFR (Non-Af Amer) ml/min BUN/Creatinine Ratio (10-20) Glucose (70-99) mg/dl POC Glucose (other) 113 H (70-99) mg/dl Calcium (8.5-10.1) mg/dl POC Ioniz Calcium Raúl 1.11 L (1.12-1.32) mmol/l Total Bilirubin (0.2-1) mg/dl AST (15-37) U/L ALT (12-78) U/L Alkaline Phosphatase (45-117) U/L Total Creatine Kinase (39-308) U/L CK-MB (CK-2) (0.5-3.6) ng/ml CK/CKMB % Calc Troponin I (0-0.045) ng/ml Total Protein (6.4-8.2) gm/dl Albumin (3.4-5.0) gm/dl Globulin (2.5-4.0) gm/dl Albumin/Globulin Ratio (0.9-2) Lipase (73-393) U/L Random Cortisol mcg/dl COVID-19 Eval Order Covid19 at [facility] SARS-CoV-2 (PCR) NEGATIVE (Negative) 10/19/20 10/19/20 Range/Units 18:29 19:45 WBC (4.8-10.8) K/uL RBC (4.7-6.1) M/uL Hgb (14.0-18.0) g/dL POC Hgb (14.0-18.0) g/dl Hct (42-52) % POC Hct (42-52) % MCV (80-100) fL MCH (25-34) pg MCHC (32-36) g/dL Plt Count (130-400) K/uL Immature Gran % (Auto) % Neut % (Auto) % Lymph % (Auto) % [place] % (Auto) % Eos % (Auto) % Baso % (Auto) % Neut # (Auto) (1.4-6.5) K/uL Lymph # (Auto) (1.2-3.4) K/uL [place] # (Auto) (0.11-0.59) K/uL Eos # (Auto) (0-0.5) K/uL Baso # (Auto) (0-0.2) K/uL Immature Gran # (Auto) (0.00-0.02) K/uL APTT PTT Ratio POC Sodium (135-144) mmol/L Sodium (136-145) mmol/L POC Potassium (3.3-5.0) mmol/L Potassium 4.0 (3.5-5.1) mmol/L POC Chloride (101-112) mmol/L Chloride (98-107) mmol/L Carbon Dioxide (21-32) mmol/L POC Total CO2 (24-31) mmol/L Anion Gap (3-11) POC Anion Gap (16-25) mmol/L POC BUN (7-18) mg/dl BUN (7-18) mg/dl Creatinine (0.6-1.4) mg/dl POC Creatinine (0.6-1.3) mg/dl Est Cr Clr Drug Dosing ml/min Est GFR ( Amer) ml/min Est GFR (Non-Af Amer) ml/min BUN/Creatinine Ratio (10-20) Glucose (70-99) mg/dl POC Glucose (other) (70-99) mg/dl Calcium (8.5-10.1) mg/dl POC Ioniz Calcium Raúl (1.12-1.32) mmol/l Total Bilirubin (0.2-1) mg/dl AST 17 (15-37) U/L ALT (12-78) U/L Alkaline Phosphatase (45-117) U/L Total Creatine Kinase 62 (39-308) U/L CK-MB (CK-2) (0.5-3.6) ng/ml CK/CKMB % Calc Troponin I (0-0.045) ng/ml Total Protein (6.4-8.2) gm/dl Albumin (3.4-5.0) gm/dl Globulin (2.5-4.0) gm/dl Albumin/Globulin Ratio (0.9-2) Lipase (73-393) U/L Random Cortisol 45.29 mcg/dl COVID-19 Eval Order SARS-CoV-2 (PCR) (Negative) Administered Medications Discontinued Medications Albuterol (Albut/Ipratrop 3mg/0.5mg Neb 3 Ml Vial) 3 ml INH QIDR [facility] Stop: 11/19/20 06:59 Last Admin: 10/20/20 15:32 Dose: Not Given Documented by: [id number] Admin: 10/20/20 11:09 Dose: 3 ml Documented by: [id number] Admin: 10/20/20 07:35 Dose: 3 ml Documented by: [id number] Budesonide (Budesonide 0.5 Mg/2 Ml Vial (Pulmicort)) 0.5 mg INH BIDR [facility] Stop: 11/18/20 23:16 Last Admin: 10/20/20 07:35 Dose: 0.5 mg Documented by: [id number] Fluticasone Furoate (Fluticasone Furoate 200mcg 14 Puffs/Inhaler) 1 puffs INH DAILY [facility] Stop: 11/19/20 08:59 Last Admin: 10/20/20 08:14 Dose: 1 puffs Documented by: [id number] Guaifenesin (Guaifenesin 600 Mg Tabcr) 600 mg PO Q12 [facility] Stop: 11/19/20 08:59 Last Admin: 10/20/20 08:13 Dose: 600 mg Documented by: [id number] Heparin Sodium (Porcine) (Heparin Sod 5,000 Unit/0.5 Ml Vial) 5,000 units SQ Q12 [facility] Stop: 11/19/20 08:59 Last Admin: 10/20/20 08:15 Dose: 5,000 units Documented by: [id number] Hydrocortisone Sodium Succinate (Hydrocortisone Sod Succinate 100 Mg/2 Ml Vial) 100 mg IV NOW STA Stop: 10/19/20 19:07 Last Admin: 10/19/20 19:43 Dose: 100 mg Documented by: [id number] Sodium Chloride (Nss 1000ml) 500 mls @ 999 mls/hr IV .Q31M ONE Stop: 10/19/20 17:57 Last Infusion: 10/19/20 21:09 Dose: 0 mls/hr Documented by: [id number] Admin: 10/19/20 18:07 Dose: 999 mls/hr Documented by: [id number] Acetaminophen (Ofirmev) 1,000 mg in 100 mls @ 400 mls/hr IV NOW STA Stop: 10/19/20 17:42 Last Infusion: 10/19/20 20:33 Dose: 0 mls/hr Documented by: [id number] Admin: 10/19/20 18:04 Dose: 400 mls/hr Documented by: [id number] Piperacillin Sod/Tazobactam Sod (Zosyn) 4.5 gm in 120 mls @ 240 mls/hr IV NOW ONE Stop: 10/19/20 19:41 Last Infusion: 10/19/20 22:15 Dose: 0 mls/hr Documented by: [id number] Admin: 10/19/20 20:52 Dose: 240 mls/hr Documented by: [id number] Levofloxacin/Dextrose (Levaquin/D5w) 750 mg in 150 mls @ 100 mls/hr IV NOW STA Stop: 10/19/20 20:41 Last Infusion: 10/19/20 21:24 Dose: 0 mls/hr Documented by: [id number] Admin: 10/19/20 19:45 Dose: 100 mls/hr Documented by: [id number] Sodium Chloride (Nss 1000ml) 500 mls @ 999 mls/hr IV .Q31M ONE Stop: 10/19/20 20:32 Last Admin: 10/20/20 06:20 Dose: Not Given Documented by: [id number] Albumin Human (Albumin 25%) 12.5 gm in 50 mls @ 50 mls/hr IV Q1H MANE Stop: 10/20/20 00:14 Last Infusion: 10/19/20 21:57 Dose: 0 mls/hr Documented by: [id number] Admin: 10/19/20 21:41 Dose: 50 mls/hr Documented by: [id number] Infusion: 10/19/20 21:41 Dose: 50 mls/hr Documented by: [id number] Admin: 10/19/20 20:51 Dose: 50 mls/hr Documented by: [id number] Infusion: 10/19/20 20:51 Dose: 50 mls/hr Documented by: [id number] Admin: 10/19/20 20:47 Dose: 50 mls/hr Documented by: [id number] Infusion: 10/19/20 20:47 Dose: 50 mls/hr Documented by: [id number] Admin: 10/19/20 20:38 Dose: 50 mls/hr Documented by: [id number] Sodium Chloride (Nss 1000ml) 1,000 mls @ 999 mls/hr IV .Q1H1M MANE Stop: 10/19/20 21:16 Last Infusion: 10/19/20 21:39 Dose: 0 mls/hr Documented by: [id number] Admin: 10/19/20 20:38 Dose: 999 mls/hr Documented by: [id number] Ceftriaxone Sodium 1,000 mg/ (Dextrose) 50 mls @ 100 mls/hr IV Q24H MANE; Protocol Stop: 10/27/20 05:59 Last Infusion: 10/20/20 06:10 Dose: 0 mls/hr Documented by: [id number] Admin: 10/20/20 05:41 Dose: 100 mls/hr Documented by: [id number] Azithromycin 500 mg/ Dextrose 255 mls @ 125 mls/hr IV Q24H MANE Stop: 10/27/20 07:59 Last Infusion: 10/20/20 10:24 Dose: 0 mls/hr Documented by: [id number] Admin: 10/20/20 08:20 Dose: 125 mls/hr Documented by: [id number] Potassium Chloride/Sodium Chloride (Normal Saline W/20 Meq Kcl) 20 meq in 1,000 mls @ 100 mls/hr IV .Q10H MANE Stop: 10/20/20 09:16 Last Infusion: 10/20/20 10:53 Dose: 0 mls/hr Documented by: [id number] Admin: 10/20/20 00:31 Dose: 100 mls/hr Documented by: [id number] Hydrocortisone Sodium (Succinate 100 mg/ Syringe) 2 mls @ 4 mls/min IV Q8H MANE Stop: 11/19/20 03:59 Last Admin: 10/20/20 12:04 Dose: 4 mls/min Documented by: [id number] Admin: 10/20/20 04:02 Dose: 4 mls/min Documented by: [id number] Ioversol (Optiray 320 125ml) 119 ml IV ONCE ONE Stop: 10/19/20 18:14 Last Admin: 10/19/20 18:14 Dose: 1 ml Documented by: [id number] Levalbuterol HCl (Levalbuterol Hcl 1.25 Mg/3 Ml Neb) 1.25 mg NEB NOW STA Stop: 10/19/20 18:01 Last Admin: 10/19/20 18:11 Dose: 1.25 mg Documented by: [id number] Levalbuterol HCl (Levalbuterol Hcl 1.25 Mg/3 Ml Neb) 1.25 mg NEB NOW STA Stop: 10/19/20 19:28 Last Admin: 10/19/20 20:14 Dose: 1.25 mg Documented by: [id number] Methylprednisolone (Methylprednisolone 125 Mg/2 Ml Vial) 60 mg IV NOW STA Stop: 10/19/20 17:28 Last Admin: 10/19/20 18:04 Dose: 60 mg Documented by: [id number] Ondansetron HCl (Ondansetron Inj 2 Mg/Ml 2 Ml Vial) 4 mg IV NOW STA Stop: 10/19/20 17:28 Last Admin: 10/19/20 18:04 Dose: 4 mg Documented by: [id number] Pravastatin Sodium (Pravastatin Sod 20 Mg Tab) 20 mg PO DAILY [facility] Stop: 11/19/20 08:59 Last Admin: 10/20/20 08:13 Dose: 20 mg Documented by: [id number] Umeclidinium/Vilanterol (Umeclidinium/Vilanterol 62.5/25mcg 7 Puffs/Inhaler) 1 puffs INH DAILY [facility] Stop: 11/19/20 08:59 Last Admin: 10/20/20 08:14 Dose: 1 puffs Documented by: [id number] Imaging Data Radiologist's Impression: Chest X-Ray 10/19/20 17:19 XR chest 1V portable HISTORY: Atypical Chest Pain COMPARISON: Chest 04/24/2020. FINDINGS: No pneumothorax. No pleural effusions. The heart is normal in size. No evidence for pulmonary edema. There is a new focal right apical density. Stable 1.8 cm density within the left lung apex. The lung bases are clear. Emphysema. IMPRESSION: There is new focal density within the right lung apex. This could represent a p neumonia. This will be better appreciated on the same day chest CT. ACT 112: Negative or not required by law. Electronically signed by: Tha Robledo M.D. 10/19/2020 5:36 PM Chest CTA 10/19/20 17:27 CHEST CTA for PULMONARY ARTERIES CT DOSE: HISTORY: Shortness of breath. TECHNIQUE: Multiaxial CT images of the chest were performed following the intravenous administration of contrast to evaluate the pulmonary arteries. Maximal intensity projection images were also obtained. A dose lowering technique was utilized adhering to the principles of ALARA. COMPARISON STUDY: Chest CTA 04/24/2020. FINDINGS: There is an old T12 superior endplate compression deformity. Super endplate indentation at T11 may be due to a Schmorl's node. Please refer to the same day abdomen and pelvis CT for further evaluation of the abdominal structures. There are trace bilateral pleural effusions. The heart is normal in size. Normal caliber thoracic aorta. Borderline enlarged mediastinal and bilateral hilar lymph nodes are also unchanged. Normal caliber thoracic aorta with no evidence for dissection. No filling defects within the pulmonary arteries to suggest a pulmonary embolus. Severe emphysema. No pneumothorax. Dilated trachea likely due to the emphysema. Mild central bronchial wall thickening which is likely chronic. An irregular left apical density remains unchanged. There is a new 7 mm left apical nodular density in image 288. There is a 7 mm nodular density within the left upper lobe on image 230 which is also new from the prior study. Small patchy irregular density within the superior segment of the left lower lobe is new from the prior study. Multifocal areas of consolidation within the right lung apex are also new from the prior study. Dominant focus of consolidation on image 279 measures 3 cm. Small subpleural density within the right upper lobe laterally. IMPRESSION: 1. No evidence for pulmonary embolus. 2. Multifocal areas consolidation within the right upper lobe with a few scattered additional nodular/irregular densities within the lungs as described above. Findings favor a pneumonia. However, [address] follow-up recommended to ensure resolution and to exclude the possibility of an underlying neoplastic process. 3. Emphysema. 4. Trace bilateral pleural effusions. 5. Mild mediastinal and bilateral hilar lymphadenopathy, unchanged. This also bears watching on future examinations. ACT 112: Positive. There are findings on this exam that require communication between the performing entity and the patient following Patient Test Result Information Act ([place] Act 112) guidelines. Electronically signed by: Tha Robledo M.D. 10/19/2020 7:[address] 10/19/20 18:[address] DOSE: HISTORY: Pt c/o neck pain TECHNIQUE: Multiaxial CT images of the cervical spine were performed and reformatted in the sagittal and coronal plane without the use of contrast. A dose lowering technique was utilized adhering to the principles of ALARA. COMPARISON: None. FINDINGS: No fractures. No subluxation. Prevertebral soft tissues and the C1-C2 interval are intact. No pneumothorax. Irregular biapical densities are better appreciated on the same day chest CT. IMPRESSION: No fractures within the cervical spine. ACT 112: Negative or not required by law. Electronically signed by: Tha Robledo M.D. 10/19/2020 7:[address] 10/19/20 18:[address] DOSE: 1577.66 mGy.cm HISTORY: Pt multiple falls TECHNIQUE: Multiaxial CT images of the head were performed without the use of intravenous contrast. Automated exposure control was utilized for this study. A dose lowering technique was utilized adhering to the principles of ALARA. Comparison: None. Findings: The paranasal sinuses and mastoid air cells are clear. The calvarium and skull base are intact. There is no mass, hematoma, midline shift, acute infarct. White matter hypodensity is nonspecific but suggestive of microvascular ischemic change. The ventricles and sulci demonstrate mild age-related involutional changes. Impression: No acute intracranial abnormality. Atrophy and microvascular ischemic changes. ACT 112: Negative or not required by law. Electronically signed by: Tha Robledo M.D. 10/19/2020 7:00 PM Discharge Plan Visit Data Chief Complaint: Shortness of Breath/Dyspnea Stated Complaint: SOB,PASSING OUT ED Provider: Santhosh Salamanca Discharge Problem: Pneumonia, Adrenal insufficiency due to corticosteroid withdrawal, Dyspnea on exertion, Bradycardia Patient Disposition: Admitted As Inpatient Discharge Instructions Interventions: ED Discharge Assessment Last Done: 10/19/20 22:26 Discharge Problem: Pneumonia Qualifiers: Pneumonia type: due to unspecified organism Laterality: left Lung location: lower lobe of lung Qualified Code(s): J18.9 - Pneumonia, unspecified organism
[2020-10-19] MEDS ORDERED: SODIUM CHLORIDE 0.9% 1000ML 1,000 ML IV SCH (20:16)
--- NOTE | 2020-10-19 20:20 | CT Scan Report ---
ABDOMEN AND PELVIS CT WITH IV CONTRAST CT DOSE: HISTORY: Pt c/o emesis TECHNIQUE: Multiaxial CT images of the abdomen and pelvis were performed following the use of intrave nous contrast. A dose lowering technique was utilized adhering to the principles of ALARA. COMPARISON STUDY: None. FINDINGS: Emphysema and trace bilateral pleural effusions. Old mild superior endplate compression def ormity at T12 is again noted. Degenerative changes seen within the lumbar spine. Mild motion artifact resulting in suboptimal evaluation of the abdomen and pelvis. No pneumoperitoneum. No pneumatosis. S [place] amount of gas within the anterior subdiaphragmatic location appears to be located within the loo p of small bowel. Otherwise, no definite pneumoperitoneum or pneumatosis. The liver, spleen, adrenal glands, pancreas, and kidneys are within normal limits. There is a right extrarenal pelvis. No hydron ephrosis. Mild bladder wall thickening. This could be due to underdistention. The prostate gland is m ildly enlarged. There is trace pelvic free fluid. Moderate calcified plaque within the abdominal aort a which measures up to 3 cm in diameter. This is consistent with a small abdominal aortic aneurysm. T he main portal vein appears patent. No retroperitoneal lymphadenopathy. Suboptimal evaluation for bow el pathology due to the motion artifact. However, there is no definite bowel wall thickening or obstr uction. Colonic diverticulosis. No evidence for acute diverticulitis. The appendix is only partially visualized due to the motion artifact but appears normal in caliber. IMPRESSION: 1. Suboptimal evaluation due to motion artifact. However, no definite bowel wall thickening or obstru ction. 2. Trace bilateral pleural fusions and trace ascites. 3. Emphysema. 4. Mild aneurysmal dilatation of the infrarenal abdominal aorta measures up to 3 cm. 5. Colonic diverticulosis. No evidence for acute diverticulitis. 6. The visualized appendix appears unremarkable. ACT 112: Negative or not required by law. Electronically signed by: Tha Robledo M.D. 10/19/2020 8:09 PM
[2020-10-19] MEDS: ALBUMIN 25% 12.5 GM/50 ML VIAL IV SCH ×4 (20:38→21:41)
--- NOTE | 2020-10-19 21:29 | History & Physical Report ---
Date of Service October 19, 2020 Assessment & Plan (1) Pneumonia: Pneumonia/COPD exacerbation- Ceftriaxone 1 g IV daily Azithromycin 500 mg IV daily Duonebs every 4 hours while awake and every 2 hours when necessary. Guaifenesin extended release 600 mg p.o. twice daily Continue Pulmicort Respules 0.5 mg inhaled twice daily, and Trelegy Ellipta Hydrocortisone IV as noted below Present on Admission?: Yes (2) Adrenal insufficiency due to corticosteroid withdrawal: Placed on hydrocortisone 100 mg IV every 8 hours for a few days, then changed to oral prednisone as before Renal insufficiency, along with pneumonia likely contributing to his frequent falls in the past several days Present on Admission?: Yes (3) COPD (chronic obstructive pulmonary disease): See above Present on Admission?: Yes (4) Hyperlipidemia: Continue pravastatin. Check a fasting lipid panel Present on Admission?: Yes (5) BPH (benign prostatic hyperplasia): Continue doxazosin Present on Admission?: Yes History of Present Illness Chief Complaint: The patient presents to the emergency department with worsening generalized weakness and complaint of multiple falls over the past 3 days Primary Care Provider: NO PCP The patient is an 80-year-old male with a past medical history including compression fracture, bacteremia, hypoxia, COVID-19 virus infection, asbestos exposure, prostatic intraepithelial neoplasia, BPH, hyperlipidemia, and COPD. His granddaughter reports that his prescription for prednisone was stopped about 1 week ago after having been on it for 10 years, and that he has been feeling generally weak with short of breath and dyspnea on exertion since that time. He has fallen several times over the past 3 days, but has sustained no injuries. Allergies Allergy/AdvReac Type Severity Reaction Status Date / Time rosuvastatin [From Crestor] Allergy Unknown Verified 10/19/20 17:56 Home Medications Medication Instructions Recorded Confirmed Type pravastatin 20 mg tablet 20 mg PO DAILY #90 tab 11/30/19 10/19/20 Rx budesonide 0.5 mg/2 mL suspension 0.5 mg INH BID #60 ml 06/04/20 10/19/20 Rx for nebulization ipratropium 0.5 mg-albuterol 3 mg 3 ml INHALATION Q6H PRN #180 ml 06/05/20 10/19/20 Rx (2.5 mg base)/3 mL nebulization soln ipratropium 20 mcg-albuterol 100 1 puff INH Q6H PRN #12 gm 06/17/20 10/19/20 Rx mcg/actuation mist for inhalation prednisone 5 mg tablet 5 mg PO DAILY #90 tab 06/19/20 10/19/20 Rx doxazosin 4 mg tablet 4 mg PO QPM #90 tab 09/10/20 10/19/20 Rx divymqccpdk-gastvrppq-omjvjpmz 1 inh INHALATION DAILY 10/19/20 10/19/20 History [Trelegy Ellipta] sulindac 150 mg PO BID 10/19/20 10/19/20 History Past Med/Surg History Medical History Asbestos exposure BPH (benign prostatic hyperplasia) COPD (chronic obstructive pulmonary disease) Elevated PSA Hyperlipidemia PIN (prostatic intraepithelial neoplasia) Surgical History History of hernia repair No pertinent past surgical history Family History (Updated 06/04/20 @ 08:18 by Alia Garcia MA) Other No pertinent family history in first degree relatives Denies family history of Ovarian cancer Prostate cancer Coronary heart disease Breast cancer Colorectal cancer Social History (Updated 06/04/20 @ 08:18 by Alia Garcia MA) Smoking Status: Former smoker Number of Years Since Quit: 35; Second Hand Exposure: No; Do You Dip or Chew Tobacco: No; Tobacco Cessation Education Requested by Patient: No Hx Alcohol Use: No Hx Substance Use: No Preferred Language: [place] Communication Ability: Effective Visual Impairment: No Limitations Hearing Ability: Hard of Hearing 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 Beliefs That Will Affect Care: None marital status: Current Living Situation: Spouse current occupational status: retired How many Children do You have: 6 Other Information That Helps Us Care for You: No Feels Safe at Home: Yes Childhood Exposure to Second-Hand Smoke: No caffeine: Yes during the past year weight has: remained stable Dental Care, Regularly: No Physical Activity Frequency: Does not Exercise Seatbelt Use: sometimes Sunscreen Use: No Assistive Devices: None Review of Systems Review of Systems: The patient denies chest pain, palpitations, cough, lower extremity swelling, sore throat, fevers, chills, sweats, nausea, vomiting, diarrhea , constipation, abdominal pain, pelvic pain, blood in urine or stool, dysuria, urinary frequency or urgency, loss of consciousness, rash, abnormal bruising or bleeding, focal weakness, numbness or tingling in arms or legs, generalized arthralgias or myalgias, back or neck pain, or night sweats. The review of systems is otherwise negative other than for that already noted above, and at least 10 systems have been reviewed. Physical Exam Physical Exam: The patient is awake, alert and oriented 3, well developed and well nourished, normocephalic and atraumatic, lying in bed and in no acute distress. HEENT--PERRL, EOMI, mucous membranes and oropharynx dry. Neck--supple. No JVD. No bruits. Thyroid normal, trachea midline, no adenopathy. Heart--normal S1 and S2. No murmurs, rubs or gallops. Lungs--clear bilaterally, no respiratory distress, no accessory muscle use. Abdomen--normal bowel sounds and soft. Nontender. Nondistended Extremities--no cyanosis or clubbing. No edema. Dermatologic--normal skin turgor, normal color, no abnormal lymph nodes, no rash. Neurologic--cranial nerves II through XII grossly intact. Rheumatologic--normal range of motion. Psychiatric--normal affect. Results & Data Results & Data ([facility]) Vital Signs (Past 12 Hours) Vital Signs Temp Pulse Pulse Resp BP Pulse Ox 10/19/20 21:20 70 17 87/48 L 95 10/19/20 21:15 71 21 86/46 L 96 10/19/20 21:10 74 20 85/48 L 97 10/19/20 21:06 72 20 95 10/19/20 21:05 72 24 91/53 L 96 10/19/20 21:01 76 14 91/53 L 96 10/19/20 21:00 74 23 80/51 L 97 10/19/20 20:55 76 15 80/49 L 96 10/19/20 20:51 77 16 96 10/19/20 20:50 74 15 89/59 L 96 10/19/20 20:45 81 23 93/50 L 96 10/19/20 20:43 83 17 81/54 L 97 10/19/20 20:37 83 18 97 10/19/20 20:36 79 20 86/47 L 97 10/19/20 20:14 18 95 10/19/20 20:10 87 19 78/56 L 95 10/19/20 19:43 90 10/19/20 19:40 80 21 81/43 L 95 10/19/20 19:00 82 18 92 10/19/20 18:30 91 H 23 93 10/19/20 18:12 82 20 94 10/19/20 17:30 94 H 20 98 10/19/20 17:26 95 10/19/20 17:25 94 10/19/20 17:11 98.1 F 98 H 20 108/67 92 Laboratory Results Laboratory Results WBC 5.15 K/uL (4.8-10.8) 10/19/20 17: RBC 4.97 M/uL (4.7-6.1) 10/19/20 17:28 Hgb 15.3 g/dL (14.0-18.0) 10/19/20 17:28 POC Hgb 15.3 g/dl (14.0-18.0) 10/19/20 17:53 Hct 44.6 % (42-52) 10/19/20 17:28 POC Hct 45 % (42-52) 10/19/20 17:53 MCV 89.7 fL (80-100) 10/19/20 17:28 MCH 30.8 pg (25-34) 10/19/20 17:28 MCHC 34.3 g/dL (32-36) 10/19/20 17:28 Plt Count 249 K/uL (130-400) 10/19/20 17:28 Immature Gran % (Auto) 0.2 % 10/19/20 17:28 Neut % (Auto) 79.9 % 10/19/20 17:28 Lymph % (Auto) 14.8 % 10/19/20 17:28 [place] % (Auto) 3.9 % 10/19/20 17:28 Eos % (Auto) 0.2 % 10/19/20 17:28 Baso % (Auto) 1.0 % 10/19/20 17:28 Neut # (Auto) 4.12 K/uL (1.4-6.5) 10/19/20 17:28 Lymph # (Auto) 0.76 K/uL (1.2-3.4) L 10/19/20 17:28 [place] # (Auto) 0.20 K/uL (0.11-0.59) 10/19/20 17:28 Eos # (Auto) 0.01 K/uL (0-0.5) 10/19/20 17:28 Baso # (Auto) 0.05 K/uL (0-0.2) 10/19/20 17:28 Immature Gran # (Auto) 0.01 K/uL (0.00-0.02) 10/19/20 17:28 APTT Cancelled 10/19/20 17:28 PTT Ratio Cancelled 10/19/20 17:28 POC Sodium 135 mmol/L (135-144) 10/19/20 17:53 Sodium 132 mmol/L (136-145) L 10/19/20 17:28 POC Potassium 4.0 mmol/L (3.3-5.0) 10/19/20 17:53 Potassium 4.0 mmol/L (3.5-5.1) 10/19/20 18:29 POC Chloride 101 mmol/L (101-112) 10/19/20 17:53 Chloride 104 mmol/L (98-107) 10/19/20 17:28 Carbon Dioxide 23 mmol/L (21-32) 10/19/20 17:28 POC Total CO2 23 mmol/L (24-31) L 10/19/20 17:53 Anion Gap 5.0 (3-11) 10/19/20 17:28 POC Anion Gap 16.0 mmol/L (16-25) 10/19/20 17:53 POC BUN 26 mg/dl (7-18) H 10/19/20 17:53 BUN 23 mg/dl (7-18) H 10/19/20 17:28 Creatinine 1.05 mg/dl (0.6-1.4) 10/19/20 17:28 POC Creatinine 1.0 mg/dl (0.6-1.3) 10/19/20 17:53 Est Cr Clr Drug Dosing 48.5 ml/min 10/19/20 17:28 Est GFR ( Amer) 76.8 ml/min 10/19/20 17:28 Est GFR (Non-Af Amer) 66.3 ml/min 10/19/20 17:28 BUN/Creatinine Ratio 21.6 (10-20) H 10/19/20 17:28 Glucose 105 mg/dl (70-99) H 10/19/20 17:28 POC Glucose (other) 113 mg/dl (70-99) H 10/19/20 17:53 Calcium 8.1 mg/dl (8.5-10.1) L 10/19/20 17:28 POC Ioniz Calcium Raúl 1.11 mmol/l (1.12-1.32) L 10/19/20 17:53 Total Bilirubin 0.7 mg/dl (0.2-1) 10/19/20 17:28 AST 17 U/L (15-37) 10/19/20 18:29 ALT 19 U/L (12-78) 10/19/20 17:28 Alkaline Phosphatase 76 U/L (45-117) 10/19/20 17:28 Total Creatine Kinase 62 U/L (39-308) 10/19/20 18:29 CK-MB (CK-2) < 1.0 ng/ml (0.5-3.6) 10/19/20 17:28 CK/CKMB % Calc TNP 10/19/20 17:28 Troponin I < 0.015 ng/ml (0-0.045) 10/19/20 17:28 Total Protein 6.8 gm/dl (6.4-8.2) 10/19/20 17:28 Albumin 2.9 gm/dl (3.4-5.0) L 10/19/20 17:28 Globulin 3.9 gm/dl (2.5-4.0) 10/19/20 17:28 Albumin/Globulin Ratio 0.7 (0.9-2) L 10/19/20 17:28 Lipase 118 U/L (73-393) 10/19/20 17:28 COVID-19 Eval Order Covid19 at [facility] 10/19/20 18:06 SARS-CoV-2 (PCR) NEGATIVE (Negative) 10/19/20 18:06 Impressions Chest X-Ray 10/19/20 17:19 XR chest 1V portable HISTORY: Atypical Chest Pain COMPARISON: Chest 04/24/2020. FINDINGS: No pneumothorax. No pleural effusions. The heart is normal in size. No evidence for pulmonary edema. There is a new focal right apical density. Stable 1.8 cm density within the left lung apex. The lung bases are clear. Emphysema. IMPRESSION: There is new focal density within the right lung apex. This could represent a pneumonia. This will be better appreciated on the same day chest CT. ACT 112: Negative or not required by law. Electronically signed by: Tha Robledo M.D. 10/19/2020 5:36 PM Abdomen/Pelvis CT 10/19/20 17:[address] WITH IV CONTRAST CT DOSE: HISTORY: Pt c/o emesis TECHNIQUE: Multiaxial CT images of the abdomen and pelvis were performed following the use of intravenous contrast. A dose lowering technique was utilized adhering to the principles of ALARA. COMPARISON STUDY: None. FINDINGS: Emphysema and trace bilateral pleural effusions. Old mild superior endplate compression deformity at T12 is again noted. Degenerative changes seen within the lumbar spine. Mild motion artifact resulting in suboptimal evaluation of the abdomen and pelvis. No pneumoperitoneum. No pneumatosis. S[place] amount of gas within the anterior subdiaphragmatic location appears to be located within the loop of small bowel. Otherwise, no definite pneumoperitoneum or pneumatosis. The liver, spleen, adrenal glands, pancreas, and kidneys are within normal limits. There is a right extrarenal pelvis. No hydronephrosis. Mild bladder wall thickening. This could be due to underdistention. The prostate gland is mildly enlarged. There is trace pelvic free fluid. Moderate calcified plaque within the abdominal aorta which measures up to 3 cm in diameter. This is consistent with a small abdominal aortic aneurysm. The main portal vein appears patent. No retroperitoneal lymphadenopathy. Suboptimal evaluation for bowel pathology due to the motion artifact. However, there is no definite bowel wall thickening or obstruction. Colonic diverticulosis. No evidence for acute diverticulitis. The appendix is only partially visualized due to the motion artifact but appears nor mal in caliber. IMPRESSION: 1. Suboptimal evaluation due to motion artifact. However, no definite bowel wall thickening or obstruction. 2. Trace bilateral pleural fusions and trace ascites. 3. Emphysema. 4. Mild aneurysmal dilatation of the infrarenal abdominal aorta measures up to 3 cm. 5. Colonic diverticulosis. No evidence for acute diverticulitis. 6. The visualized appendix appears unremarkable. ACT 112: Negative or not required by law. Electronically signed by: Tha Robledo M.D. 10/19/2020 8:09 PM Chest CTA 10/19/20 17:27 CHEST CTA for PULMONARY ARTERIES CT DOSE: HISTORY: Shortness of breath. TECHNIQUE: Multiaxial CT images of the chest were performed following the intravenous administration of contrast to evaluate the pulmonary arteries. Maximal intensity projection images were also obtained. A dose lowering technique was utilized adhering to the principles of ALARA. COMPARISON STUDY: Chest CTA 04/24/2020. FINDINGS: There is an old T12 superior endplate compression deformity. Super endplate indentation at T11 may be due to a Schmorl's node. Please refer to the same day abdomen and pelvis CT for further evaluation of the abdominal structures. There are trace bilateral pleural effusions. The heart is normal in size. Normal caliber thoracic aorta. Borderline enlarged mediastinal and bilateral hilar lymph nodes are also unchanged. Normal caliber thoracic aorta with no evidence for dissection. No filling defects within the pulmonary arteries to suggest a pulmonary embolus. Severe emphysema. No pneumothorax. Dila rosio trachea likely due to the emphysema. Mild central bronchial wall thickening which is likely chronic. An irregular left apical density remains unchanged. There is a new 7 mm left apical nodular density in image 288. There is a 7 mm nodular density within the left upper lobe on image 230 which is also new from the prior study. Small patchy irregular density within the superior segment of the left lower lobe is new from the prior study. Multifocal areas of consolidation within the right lung apex are also new from the prior study. Dominant focus of consolidation on image 279 measures 3 cm. Small subpleural density within the right upper lobe laterally. IMPRESSION: 1. No evidence for pulmonary embolus. 2. Multifocal areas consolidation within the right upper lobe with a few scattered additional nodular/irregular densities within the lungs as described above. Findings favor a pneumonia. However, [address] follow-up recommended to ensure resolution and to exclude the possibility of an underlying neoplastic process. 3. Emphysema. 4. Trace bilateral pleural effusions. 5. Mild mediastinal and bilateral hilar lymphadenopathy, unchanged. This also bears watching on future examinations. ACT 112: Positive. There are findings on this exam that require communication between the performing entity and the patient following Patient Test Result Information Act ([place] Act 112) guidelines. Electronically signed by: Tha Robledo M.D. 10/19/2020 7:[address] 10/19/20 18:[address] DOSE: HISTORY: Pt c/o neck pain TECHNIQUE: Multiaxial CT images of the cervical spine were performed and reformatted in the sagittal and coronal plane without the use of contrast. A dose lowering technique was utilized adhering to the principles of ALARA. COMPARISON: None. FINDINGS: No fractures. No subluxation. Prevertebral soft tissues and the C1-C2 interval are intact. No pneumothorax. Irregular biapical densities are better appreciated on the same day chest CT. IMPRESSION: No fractures within the cervical spine. ACT 112: Negative or not required by law. Electronically signed by: Tha Robledo M.D. 10/19/2020 7:[address] 10/19/20 18:[address] DOSE: 1577.66 mGy.cm HISTORY: Pt multiple falls TECHNIQUE: Multiaxial CT images of the head were performed without the use of intravenous contrast. Automated exposure control was utilized for this study. A dose lowering technique was utilized adhering to the principles of ALARA. Comparison: None. Findings: The paranasal sinuses and mastoid air cells are clear. The calvarium and skull base are intact. There is no mass, hematoma, midline shift, acute infarct. White matter hypodensity is nonspecific but suggestive of microvascular ischemic change. The ventricles and sulci demonstrate mild age-related involutional changes. Impression: No acute intracranial abnormality. Atrophy and microvascular ischemic changes. ACT 112: Negative or not required by law. Electronically signed by: Tha Robledo M.D. 10/19/2020 7:00 PM Code Status & VTE Plan Code Status Full code VTE Prophylaxis Plan VTE Prophylaxis will be ordered: Yes PG Care Time/CCT Total # of Minutes Spent Total Time Spent with Patient: Total time spent is greater than 50% in coordination of care (as documented) at patient's floor/unit and/or counseling patient: Coding Level of Care Code 43155 Initial Inpt Care Lvl 3 Diagnoses Pneumonia J18.9 Adrenal insufficiency due to corticosteroid withdrawal E27.3; T38.0X5A COPD (chronic obstructive pulmonary disease) J44.9 COPD type: unspecified COPD Hyperlipidemia E78.5 BPH (benign prostatic hyperplasia) N40.0 (1) COPD (chronic obstructive pulmonary disease) COPD type: unspecified COPD Qualified Code(s): J44.9 - Chronic obstructive pulmonary disease, unspecified
[2020-10-19] MEDS ORDERED: BUDESONIDE 0.5 MG/2 ML VIAL (PULMICORT) INH SCH (23:17)
[2020-10-19] MEDS ORDERED: NSS + 20MEQ KCL 20 MEQ/1,000 ML BAG IV SCH (23:17)
[2020-10-19] MEDS ORDERED: ACETAMINOPHEN 325 MG TAB PO PRN (23:17)
[2020-10-19] MEDS ORDERED: HYDROCORTISONE SOD SUCCINATE 100 MG/2 ML VIAL IV SCH (23:17)
[2020-10-19] MEDS ORDERED: NITROGLYCERIN SL 0.4 MG/TAB TAB SL PRN (23:17)
[2020-10-19] MEDS ORDERED: ONDANSETRON INJ 2 MG/ML 2 ML VIAL IV PRN (23:17)
[2020-10-20] MEDS: HYDROCORTISONE SOD 100 MG in SYRINGE 0 ML IV SCH ×2 (04:02→12:04)
[2020-10-20] MEDS ORDERED: cefTRIAXone SODIUM 1,000 MG in DEXTROSE 5% 50 ML IV SCH (06:00)
[2020-10-20 06:21] LABS: Hematocrit (blood only) 35.8 % (42-52); Mean Corpuscular Hemoglobin 30.2 pg (25-34); Mean Corpuscular Hgb Conc 33.5 g/dL (32-36); Mean Corpuscular Volume 89.9 fL (80-100); Mean Platelet Volume 8.8 fL (7.4-10.4); Platelet Count 188 K/uL (130-400); RDW Coefficient of Variation 13.9 % (11.5-14.5); RDW Standard Deviation 46.2 fL (36.4-46.3); Red Blood Count 3.98 M/uL (4.7-6.1)
[2020-10-20 06:25] LABS: Basophils # (auto) 0.01 K/uL (0-0.2); Basophils % (auto) 0.2 %; Immature Granulocytes # (auto) 0.01 K/uL (0.00-0.02); Immature Granulocytes % (auto) 0.2 %; Lymphocytes # (auto) 0.56 K/uL (1.2-3.4); Lymphocytes % (auto) 11.4 %; Neutrophils # (auto) 4.22 K/uL (1.4-6.5); Neutrophils % (auto) 86.2 %
[2020-10-20 06:41] LABS: Albumin Level 3.2 gm/dl (3.4-5.0); BUN Creatinine Ratio 19.7 (10-20); Calcium 7.7 mg/dl (8.5-10.1); Creatinine Clr Calc Pharmacy 46.9 ml/min; Est GFR (African American) 76.8 ml/min; Est GFR (Non-African American) 66.3 ml/min; Potassium 4.1 mmol/L (3.5-5.1)
[2020-10-20 06:43] LABS: Albumin Globulin Ratio 1.1 (0.9-2); Bilirubin,Total 0.6 mg/dl (0.2-1); Globulin 2.8 gm/dl (2.5-4.0)
[2020-10-20] MEDS: ALBUT/IPRATROP 3MG/0.5MG NEB 3 ML VIAL INH SCH ×3 (07:35→15:32)
[2020-10-20] MEDS ORDERED: AZITHROMYCIN 500 MG in DEXTROSE 5% 250 ML IV SCH (08:00)
[2020-10-20] MEDS ORDERED: UMECLIDINIUM/VILANTEROL 62.5/25MCG 7 PUFFS/INHALER INH SCH (09:00)
[2020-10-20] MEDS ORDERED: FLUTICASONE FUROATE 200MCG 14 PUFFS/INHALER INH SCH (09:00)
[2020-10-20] MEDS ORDERED: HEPARIN SOD 5,000 UNIT/0.5 ML VIAL SQ SCH (09:00)
[2020-10-20] MEDS ORDERED: guaiFENesin 600 MG TABCR PO SCH (09:00)
[2020-10-20] MEDS ORDERED: PRAVASTATIN SOD 20 MG TAB PO SCH (09:00)
[2020-10-20] MEDS ORDERED: NON-FORMULARY MEDICATION (Fluticasone-Umeclidin-Vilanter [Trelegy Ellipta] 200-62.5-25 mcg INH SCH (09:00)
--- NOTE | 2020-10-20 13:45 | Electrocardiogram Report ---
Test Reason : Blood Pressure : / mmHG Vent. Rate : 094 BPM Atrial Rate : 094 BPM P-R Int : 156 ms QRS Dur : 130 ms QT Int : 348 ms P-R-T Axes : 077 -85 064 degrees QTc Int : 435 ms Sinus rhythm with occasional Premature ventricular complexes and Premature atrial complexes Left axis deviation Right bundle branch block Abnormal ECG When compared with ECG of 24-APR-2020 13:07, Premature ventricular complexes are now Present Premature atrial complexes are now Present Confirmed by Octavio Espinosa ([id number]) on 10/20/2020 1:44:41 PM Referred By: REFERRED SELF Confirmed By:Octavio Espinosa
--- NOTE | 2020-10-20 14:58 | Communication Note ---
Date of Service: October 20, 2020 By CMS guidelines, a determination that the admission or continued stay is not medically necessary has been made by a member of the UR committee and a physi rigo for this hospital stay, therefore a Code 44 will be completed and the Inpatient admission will be changed to outpatient.
--- NOTE | 2020-10-20 18:18 | Discharge Summary ---
Date of Service October 20, 2020 Admission HPI Per Admitting Provider The patient is an 80-year-old male with a past medical history including compression fracture, bacteremia, hypoxia, COVID-19 virus infection, asbestos exposure, prostatic intraepithelial neoplasia, BPH, hyperlipidemia, and COPD. His granddaughter reports that his prescription for prednisone was stopped about 1 week ago after having been on it for 10 years, and that he has been feeling generally weak with short of breath and dyspnea on exertion since that time. He has fallen several times over the past 3 days, but has sustained no injuries. Principal Diagnosis Pneumonia Bradycardia Discharge Exam Constitutional WD/WN, vitals as above Eyes EOM intact bilaterally; no conjunctival abnormality ENMT external ear and nose normal, oropharynx normal Neck trachea midline, no thyromegaly normal visual inspection Respiratory normal respiratory effort, lungs clear to auscultation no respiratory distress Cardiovascular Rate/Rhythm: regular rhythm and + bradycardic Heart Sounds: normal S1 and normal S2 Gastrointestinal (Abdomen) Inspection/Auscultation: abdomen normal to inspection; abdomen not distended Musculoskeletal no cyanosis or clubbing, extremities motor strength 5/5 Skin no rashes, warm and dry Neurologic moves all extremities and awake Psychiatric Orientation: alert, oriented to person and cooperative Discharge Data Allergies Allergy/AdvReac Type Severity Reaction Status Date / Time rosuvastatin [From Crestor] Allergy Unknown Verified 10/19/20 17:56 Consultations 10/19/20 19:28 ED Decision to Admit Stat Ordered Studies 10/19/20 17:27 CT abd pelvis IV con only Stat CT angio chest PE protocol Stat 10/19/20 18:00 CT cervical spine wo con Stat CT head/brain wo con Stat Hospital Course (1) Pneumonia: Pneumonia seen on chest CT scan on admission. - [place] well and was breathing comfortably on room air by discharge. - Discharged on Augmentin and azithromycin x 3 more days. (2) Bradycardia: Patient had bradycardia overnight of 10/19 - 10/20. He had some hypotension associated with this (90/50s). - I did discuss this with the patient and daughter. I asked him to stay for evaluation by cardiology. However, he felt well and did not want to stay and was not overall receptive of the idea of a pacemaker. We did discuss risks of going home including further dizziness, falls, passing out, and injuries from those things. He minimized this risk, but was overall understanding. He and his daughter felt he was well enough to go home. - I ordered a 14-day Holter monitor to be sent to his home. (3) Adrenal insufficiency due to corticosteroid withdrawal: Had only been on prednisone 5 mg prior to stopping 1 week ago per PCP. - Switched to prednisone 40 mg PO daily x 4 more days, then can return to home dosing. - Discuss with PCP re: risk:benefit of low-dose steroid. (4) COPD (chronic obstructive pulmonary disease): See above (5) Hyperlipidemia: - Continue pravastatin. (6) BPH (benign prostatic hyperplasia): - Continue doxazosin Total Time Total Time Spent Total Time Spent (In Minutes): 35 Discharge Plan Discharge Items Patient Disposition: Home - Self-Care Reason For Visit: HYPOTENSION, PNEUMONIA, COPD EX Discharge Diagnosis: Pneumonia, low blood pressure Activity: Resume your previous activity Non-emergency contact: Primary Care Provider Call non-emergency contact if: your symptoms worsen Follow-up/Referrals: PCP,NO [Physician] - Diet: Regular Addtl Attending Provider Instructions: Mr. Swann, You were admitted to the hospital after having some falls at home and being short of breath. We started you on medication to help with your breathing and help you feel better. It has worked, and you are breathing better. However, your heart rate and blood pressure here was low, and we asked if you would be willing to see our cardiology team. However, you felt well and wanted to go home. We are sending a heart monitor to your house. Please wear this for 2 weeks, then follow up with your PCP. Please see your PCP, Dr. Fabian next week to check on how you are doing. Please come back to the hospital with any further episodes of dizziness, lightheadedness, passing out, or other concerning issues. Pending Studies at Discharge: No Stand-Alone Forms: My [facility], Smoking Cessation Medications and DC Order Prescriptions: New amoxicillin-pot clavulanate [Augmentin] 875-125 mg tablet 1 tab PO BID Qty: 10 RF: 0 azithromycin 250 mg tablet 250 mg PO DAILY Qty: 3 RF: 0 prednisone 20 mg tablet 40 mg PO DAILY Qty: 8 RF: 0 Continued ipratropium-albuterol 0.5 mg-3 mg(2.5 mg base)/3 mL solution for nebulization 3 ml inhalation Q6H PRN (Reason: copd) Qty: 180 RF: 3 Combivent Respimat 20-100 mcg/actuation mist 1 puff INH Q6H PRN (Reason: shortness of breath or wheezing) Qty: 12 RF: 3 prednisone 5 mg tablet 5 mg PO DAILY Qty: 90 RF: 3 budesonide 0.5 mg/2 mL suspension for nebulization 0.5 mg INH BID Qty: 60 RF: 3 pravastatin 20 mg tablet 20 mg PO DAILY Qty: 90 RF: 3 sulindac 150 mg tablet 150 mg PO BID RF: 0 Trelegy Ellipta 200-62.5-25 mcg blister with device 1 inh INHALATION DAILY RF: 0 Discontinued doxazosin 4 mg tablet 4 mg PO QPM Qty: 90 RF: 3 Discharge Orders: Discharge Order (Routine); Ordered 10/20/20 Ordered By: Carlton Petit Admission Data Admit Date/Time: 10/19/20 21:28 Attending Provider: Carlton Petit Admit Provider: Adam Castro Primary Care Provider: Bigg Fabian Other Providers: Carlton Petit Other Interventions: Discharge Summary Assessment (RN) Last Done: 10/20/20 15:13 Coding Level of Care Code 21234 OBS Care - Discharge Diagnoses Pneumonia J18.9 Bradycardia R00.1 Adrenal insufficiency due to corticosteroid withdrawal E27.3; T38.0X5A COPD (chronic obstructive pulmonary disease) J44.9 COPD type: unspecified COPD Hyperlipidemia E78.5 BPH (benign prostatic hyperplasia) N40.0
[2020-10-20] MEDS ORDERED: DOXAZosin MESYLATE 4 MG TAB PO SCH (21:00)
== END 2020-10-20 15:39 | disposition home or self-care (01) | DRG 190 ==
LOC: ED 17:10 → SUATTDRO 21:28 → 2N 21:28 → INTOOBSV 21:28 → 2N 22:26